=== PATIENT | male | born 1990 | race Caucasian/White ===

== ENCOUNTER 2024-10-20 23:34 | Observation (INO) ==
--- NOTE | 2024-10-21 02:42 | Emergency Department Note ---
History of Present Illness General Chief complaint: Abdominal Pain Stated complaint: POST SURGERY PAIN,NO BOWEL MOVEMENT Time Seen by Provider: 10/21/24 02:24 History of Present Illness Maximum Pain Intensity: 9 This 34-year-old male who had periumbilical hernia surgery today laparoscopically outpatient agrees with by Dr. Gil presents ER complaining of severe abdominal pain after trying to have a bowel movement. Patient denies fever, chills, vomiting, diarrhea. Home Medications Medication Instructions Recorded Confirmed Type peak flow meter (Peak Air Peak #1 ea 08/23/20 12/31/23 Rx Flow Meter) omeprazole 20 mg tablet,delayed 20 mg PO QPM 12/03/20 02/02/24 History release nebulizers #1 ea 08/11/21 12/31/23 Rx nebulizer accessories #1 ea 01/04/24 01/04/24 Rx albuterol sulfate 0.63 mg/3 mL 0.63 mg (3 mL) inhalation QID PRN 04/22/24 Rx solution for nebulization shortness of breath or wheezing #90 mL tiotropium bromide 1.25 2 puff inhalation DAILY #4 grams 04/22/24 Rx mcg/actuation mist for inhalation (Spiriva Respimat) nebulizer and compressor #1 ea 04/24/24 Rx mometasone-formoterol HFA 200 2 puff inhalation BID #3 Inhalers 06/16/24 Rx mcg-5 mcg/actuation aerosol inhaler montelukast 10 mg tablet See Rx Instructions .Route 06/21/24 Rx .COMPLEX #30 tabs albuterol sulfate 90 mcg/actuation 2 inh inhalation Q6H PRN Shortness 08/07/24 Rx aerosol inhaler Of Breath #18 grams benralizumab 30 mg/mL subcutaneous 30 mg subcut .COMPLEX #1 mL 09/11/24 Rx syringe (Fasenra) Allergies Allergy/AdvReac Type Severity Reaction Status Date / Time No Known Drug Allergies Allergy Unknown Verified 02/02/24 10:20 Past Med/Surg History Problem List (Updated 10/21/24 @ 05:38 by Tawnya Syed PA-C) Leukocytosis (Acute) S/P hernia surgery (Acute) Abdominal pain, acute (Acute) Umbilical hernia GERD (gastroesophageal reflux disease) History of lung abscess H/O aspiration pneumonitis Dyspnea 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 Asthma inhalers daily/prn, nebulizer prn Medical History GERD (gastroesophageal reflux disease) Anxiety History of anesthesia reaction History of ARDS History of abscessed tooth Diarrhea GERD (gastroesophageal reflux disease) Temporomandibular joint disorder Medical marijuana use Migraine History of pneumothorax Asthma History of sepsis Surgical History History of tooth extraction History of wisdom tooth extraction Family History Grandmother (Maternal) Family history of diabetes mellitus Other No family history of adverse response to anesthesia Social History (Updated 01/26/24 @ 16:48 by Chiquis Martinez RN) Smoking Status: Former smoker Tobacco Type: Cigarettes Age Started Using Tobacco: 23; Age Quit Using Tobacco: 30; packs per day: 2; Second Hand Exposure: No; Do You Dip or Chew Tobacco: No; Hx Alcohol Use: Yes Alcohol type: beer, wine and hard liquor Hx Substance Use: Yes (medical marijuana) Preferred Language: Citizen Of [place] Communication Ability: Effective Lamp Replacer Required: No Beliefs That Will Affect Care: None Current Living Situation: Family and Significant Other Current Living Situation Comment: Lives with fiance and 2 kids Feels Safe at Home: Yes Assistive Devices: Contacts and Glasses Review of Systems A total of 10 systems reviewed and were otherwise negative Physical Exam Vital Signs Vital Signs - 24 hr 10/20/24 23:46 10/21/24 02:00 10/21/24 02:51 Temperature 36.8 C Temperature Source Temporal Artery Scan Pulse Rate 95 H Pulse Rate [Finger] 88 Pulse Rhythm Regular Pulse Strength Normal Respiratory Rate 18 18 Respiratory Effort / Characteristics Non-Labored Spontaneous Respiratory Depth Normal Respiratory Pattern Regular Blood Pressure 123/88 Blood Pressure [Right Arm] 133/84 Blood Pressure Mean 99 Blood Pressure Mean [Right Arm] 100 Blood Pressure Position Sitting Pulse Oximetry 99 97 Oxygen Delivery Method Room Air Room Air Room Air Sepsis Recent Fever Within 48 Hours Yes Sepsis New/Unexplained Change in Mental Status No Sepsis Action Taken by Nursing No Action Required 10/21/24 04:00 Temperature Temperature Source Pulse Rate Pulse Rate [Finger] 87 Pulse Rhythm Pulse Strength Respiratory Rate 20 Respiratory Effort / Characteristics Respiratory Depth Respiratory Pattern Blood Pressure Blood Pressure [Right Arm] 138/90 Blood Pressure Mean Blood Pressure Mean [Right Arm] 106 Blood Pressure Position Pulse Oximetry 95 Oxygen Delivery Method Room Air Sepsis Recent Fever Within 48 Hours Sepsis New/Unexplained Change in Mental Status Sepsis Action Taken by Nursing VITALS: Vitals are noted on the nurse's note and reviewed by myself. Vital signs stable. GENERAL: Pleasant gentleman, in no acute distress, nondiaphoretic, well- developed well-nourished. SKIN: Capillary reflex less than 2 seconds. HEENT: Normocephalic. PERRLA. EOMI. Nares patent. Mucous membranes moist. Neck is supple without nuchal rigidity. HEART: Regular rate and rhythm LUNGS: Clear to auscultation bilaterally without wheezes, rales or rhonchi. No retractions or accessory muscle use. ABDOMEN: Positive bowel sounds x 4. Normal tympanic percussion. Soft, diffuse tenderness with incisional wounds intact, without masses or organomegaly. Maldonado sign negative. No guarding or rebound tenderness. no CVA tenderness MUSCULOSKELETAL: No gross musculoskeletal defects. NEURO: Patient was alert and oriented to person place and time. No focal neurological deficits. Course Administered Medications Morphine Sulfate (Morphine Sulfate 4 Mg/Ml 1 Ml Carp\Vial) 4 mg IV Q15M PRN PRN Reason: Pain Stop: 11/04/24 02:33 Last Admin: 10/21/24 04:31 Dose: 4 mg Documented By: Admin: 10/21/24 03:27 Dose: 4 mg Documented By: Admin: 10/21/24 02:48 Dose: 4 mg Documented By: SARAH Discontinued Medications Sodium Chloride (Nss) 1,000 mls @ 999 mls/hr IV .Q1H1M ONE Stop: 10/21/24 03:34 Last Infusion: 10/21/24 04:43 Dose: Infused Documented By: Admin: 10/21/24 02:48 Dose: 999 mls/hr Documented By: SARAH Ioversol (Optiray 320 100ml) 93 ml IV ONCE ONE Stop: 10/21/24 03:20 Last Admin: 10/21/24 03:19 Dose: 93 ml Documented By: CANDELARIA Ondansetron HCl (Ondansetron Inj 2 Mg/Ml 2 Ml Vial) 4 mg IV NOW STA Stop: 10/21/24 02:35 Last Admin: 10/21/24 02:48 Dose: 4 mg Documented By: SARAH Medical Decision Making Medical Records Attestation: I reviewed the patient's medical records. Home Medications Current Medication List: was personally reviewed by me Laboratory Data Attestation: I reviewed the patient's lab results. 10/21/24 02:34 10/21/24 02:34 Lab Results 10/21/24 10/21/24 10/21/24 Range/Units 02:34 03:00 04:16 WBC 24.40 H (4.8-10.8) K/ul RBC 4.77 (4.70-6.10) M/uL Hgb 13.8 L (14.0-18.0) g/dl POC Hgb 14.3 (14.0-18.0) g/dl Hct 39.4 L (42.0-52.0) % POC Hct 42 (42-52) % MCV 82.6 (80.0-100.0) fL MCH 28.9 (25.0-34.0) pg MCHC 35.0 (32.0-36.0) g/dL RDW Std Deviation 37.8 (36.4-46.3) fL RDW Coeff of Eduardo 12.5 (11.5-14.5) % Plt Count 292 (130-400) K/uL MPV 9.6 (9.4-12.4) fL Immature Gran % (Auto) 0.4 % Neut % (Auto) 85.2 % Lymph % (Auto) 5.2 % [place] % (Auto) 9.1 % Eos % (Auto) 0.0 % Baso % (Auto) 0.1 % Neut # (Auto) 20.79 H (1.40-6.50) K/uL Lymph # (Auto) 1.27 (1.20-3.40) K/uL [place] # (Auto) 2.21 H (0.11-0.59) K/uL Eos # (Auto) 0.00 (0.00-0.50) K/uL Baso # (Auto) 0.03 (0.00-0.20) K/uL Immature Gran # (Auto) 0.10 (0.01-0.20) K/uL RBC Morphology Unremarkable POC Sodium 136 (135-144) mmol/L Sodium 135 L (136-145) mmol/L POC Potassium 4.1 (3.3-5.0) mmol/L Potassium 4.1 (3.5-5.1) mmol/L POC Chloride 102 (101-112) mmol/L Chloride 102 (98-107) mmol/L Carbon Dioxide 27 (21-32) mmol/L POC Total CO2 23 L (24-31) mmol/L Anion Gap 6 (3-11) POC Anion Gap 16.0 (16-25) mmol/L POC BUN 11 (7-18) mg/dl BUN 12 (6-23) mg/dl Creatinine 0.77 (0.6-1.4) mg/dl POC Creatinine 0.8 (0.6-1.3) mg/dl Est Cr Clr Drug Dosing 148.6 ml/min eGFR 119.73 BUN/Creatinine Ratio 15.6 (10-20) Glucose 110 H (70-99(Fasting)) mg/dl POC Glucose (other) 109 H (70-99) mg/dl Calcium 9.4 (8.6-10.3) mg/dl POC Ioniz Calcium Isabella 1.18 (1.12-1.32) mmol/l Total Bilirubin 0.6 (0.2-1.0) mg/dl AST 21 (13-39) U/L ALT 21 (7-52) U/L Alkaline Phosphatase 70 (34-104) U/L Total Protein 7.0 (6.0-8.3) gm/dl Albumin 4.7 (3.4-5.0) gm/dl Globulin 2.3 L (2.5-4.0) gm/dl Albumin/Globulin Ratio 2.0 (0.9-2) Lipase 21 (11-82) U/L Urine Color Yellow Urine Appearance Clear (Clear) Urine pH 6.0 (4.5-7.5) Ur Specific [place] 1.040 H (1.000-1.030) Urine Protein Negative (Negative) Urine Glucose (UA) Negative (Negative) Urine Ketones Negative (Negative) Urine Blood Negative (Negative) Urine Nitrite Negative (Negative) Urine Bilirubin Negative (Negative) Urine Urobilinogen Negative (Negative) Ur Leukocyte Esterase Negative (Negative) Imaging Data Attestation: I personally reviewed and interpreted this imaging study as follows: Radiologist's Impression: KUB X-Ray 10/21/24 00:33 EXAM: XR KUB/Abdomen 1 view CLINICAL HISTORY: POSSIBLE IMPACTION POST SURG TODAY SDM TECHNIQUE: X-ray images of the abdomen were obtained in supine position. COMPARISON: No prior studies are available for comparison. FINDINGS: Gas Pattern: The gas pattern within the abdomen is normal with fecal matter loaded in the ascending and transverse colon. No evidence of bowel obstruction or distention. No signs of pneumoperitoneum Soft Tissues: Soft tissues of the abdomen appear normal without evidence of masses or calcifications. The liver, spleen, and kidneys are of normal size and position. Surgical clips of cholecystectomy are noted, IMPRESSION: Normal abdominal X-ray. No acute abnormalities were identified. Electronically signed by Dominga Rodrigues 10-21-2024 03:15 AM Abdomen/Pelvis CT 10/21/24 02:34 EXAM: CT abd pelvis IV con only CLINICAL HISTORY: Patient reports laproscopic hernia repair at 0900 this morning and reports attempting to have a BM but was unable to go. Reports spasming in lower abdominal muscles and fluctuating pain. 5/325 oxycodone/ acetaminophen @ 2100 pt unable to raise arms above head 93 ml opti 320 PW TECHNIQUE: Contiguous axial images were obtained from the level of the diaphragm to the pubic symphysis without and with intravenous contrast. Coronal and sagittal reconstructions were likewise performed and indicated to increase the sensitivity for detecting clinically relevant pathology. If IV contrast material had not been administered, the likelihood of detecting abnormalities relevant to the patient's condition would have been substantially decreased. CT scan was performed according to ALARA (as low as reasonable achievable). COMPARISON: None. FINDINGS: The visualized lung bases are clear. The liver is normal in size and attenuation. No focal liver lesions are seen. There is no intra or extrahepatic biliary ductal dilatation. Hepatic vasculature is patent. The gallbladder is present. The spleen, pancreas, and adrenal glands are unremarkable. The kidneys are normal in size and attenuation. There is no hydronephrosis or perinephric fat stranding. No renal calculi or renal masses are identified. The ureters are normal in caliber and no ureteral calculi are seen. The bladder is normal in contour. Pelvic viscera are unremarkable. No focal or diffuse bowel wall thickening or evidence of bowel obstruction is identified. Abdominal and pelvic vasculature is patent. No aggressive appearing osseous lesions are identified. Ill-defined fat stranding with multiple air foci are noted involving left side of anterior abdominal wall -possibility of recent operative changes likely. Few tiny air foci are also noted involving peritoneum- postoperative changes likely. Thin strip of fluid with few tiny air foci is noted involving retroperitoneum adjacent to the abdominal aorta and inferior vena cava, and along the left psoas muscle. Mild fluid noted in right paracolic gutter and right iliac fossa and in pelvic cavity. IMPRESSION: Ill-defined fat stranding with multiple air foci are noted involving left side of anterior abdominal wall -possibility of recent operative changes likely. Few tiny air foci are also noted, involving peritoneum- postoperative changes likely. Thin strip of fluid with few tiny air foci is noted involving retroperitoneum adjacent to the abdominal aorta and inferior vena cava, and along the left psoas muscle. Mild fluid noted in right paracolic gutter, right iliac fossa and in pelvic cavity. Electronically signed by Mohit Lozano 10-21-2024 05:24 AM MDM Narrative Prior records/ancillary studies reviewed. Triage Nursing notes reviewed. Additional history obtained from family. The patient's history was concerning for abdominal pain after her umbilical hernia surgery Differential diagnosis: Etiologies such as postsurgical complication, appendicitis, diverticulitis, PUD, biliary pathology, UTI, pancreatitis, obstruction, mesenteric ischemia, aortic pathology, infections, inflammatory bowel disease, renal colic, as well as others were entertained. Physical examination findings: As above. ER treatment provided: An order was placed for continuous cardiac monitoring. The monitor shows a rate of 60-100 with a sinus rhythm per my Independent interpretation. Zofran, morphine, IV fluids On reassessment the patient felt better. Diagnostics interpreted by me: The labs Independently Interpreted by myself revealed leukocytosis, stable H&H Imaging studies: Imaging was reviewed and read by radiology Consultation: A consultation was placed with the surgery, Dr. Rangel. The case was discussed and diagnostics were reviewed. The patient was evaluated admitted to their service. Exam and history seem consistent with postop intractable abdominal pain. Surgery thinks CAT scan is most likely all postsurgical. He will admit the patient for pain control. Patient is agreeable. No perforation on CAT scan. Patient was not vomiting. Stable vital signs. By the evaluation outlined above emergent etiologies such as appendicitis, diverticulitis, PUD, biliary pathology, UTI, pancreatitis, obstruction, mesenteric ischemia, aortic pathology, infections, inflammatory bowel disease, renal colic, as well as others were deemed relatively unlikely. The pt informed about the findings as listed above. All questions were answered and pleased with the treatment. The chart was completed utilizing [employer] Speech voice recognition software. Grammatical errors, random word insertions, pronoun errors, and incomplete sentences are an occassional consequence of this system due to software limitations, ambient noise, and hardware issues. Any formal questions or concerns about the content, text, or information contained within the body of this dictation should be directly addressed to the physician customer support assistant for clarification. Impression & Plan Abdominal pain, acute, S/P hernia surgery, Leukocytosis Discharge Plan Visit Data Chief Complaint: Abdominal Pain Stated Complaint: POST SURGERY PAIN,NO BOWEL MOVEMENT ED Provider: Leonarda Pressley ED Midlevel Provider: Tawnya Syed Discharge Problem: Abdominal pain, acute, S/P hernia surgery, Leukocytosis Patient Disposition: Being Evaluated by Surgeon Condition: Good Forms Stand Alone Forms: [facility] [employer] Prescriptions Prescriptions: No Action albuterol sulfate 0.63 mg/3 mL solution for nebulization 0.63 mg inhalation QID PRN (Reason: shortness of breath or wheezing) Qty: 90 1RF Spiriva Respimat 1.25 mcg/actuation mist 2 puff INH DAILY Qty: 4 5RF (DME) nebulizer and compressor Device See Rx Instructions .Route Qty: 1 0RF Rx Instructions: As directed mometasone-formoterol 200-5 mcg/actuation HFA aerosol inhaler 2 puff inhalation BID Qty: 3 3RF montelukast 10 mg tablet See Rx Instructions .ROUTE .COMPLEX Qty: 30 5RF Dose Instruction: TAKE 1 TABLET BY MOUTH EVERY MORNING Rx Instructions: TAKE 1 TABLET BY MOUTH EVERY MORNING albuterol sulfate 90 mcg/actuation HFA aerosol inhaler 2 inh inhalation Q6H PRN (Reason: Shortness Of Breath) Qty: 18 5RF Fasenra 30 mg/mL syringe 30 mg subcut .COMPLEX Qty: 1 6RF Rx Instructions: INJECT 30MG SQ EVERY 8 WEEKS APPROVED 03/16/24 - 03/17/25 REF# [id number] (DME) nebulizer accessories Kit See Rx Instructions .Route Qty: 1 0RF Rx Instructions: As directed (DME) Peak Air Peak Flow Meter Device See Rx Instructions .ROUTE .MEDSUPPLY Qty: 1 0RF Rx Instructions: As directed (DME) nebulizers Misc See Rx Instructions .Route Qty: 1 0RF Rx Instructions: As directed omeprazole 20 mg Tablet,Delayed Release (Dr/Ec) 20 mg PO QPM Referrals Referrals: Breonna Lyons, DO [Primary Care Provider] -
[2024-10-21] MEDS: ONDANSETRON INJ 2 MG/ML 2 ML VIAL IV STA (02:48)
[2024-10-21] MEDS: MoRPHine SULFATE 4 MG/ML 1 ML CARP\\VIAL IV PRN (02:48)
[2024-10-21] MEDS: SODIUM CHLORIDE 0.9% 1,000 ML IV ONE (02:48)
[2024-10-21 03:16] LABS: iSTAT Creatinine 0.8 mg/dl (0.6-1.3); iSTAT Hemoglobin 14.3 g/dl (14.0-18.0); iSTAT Ionized Calcium 1.18 mmol/l (1.12-1.32); iSTAT Potassium 4.1 mmol/L (3.3-5.0)
--- NOTE | 2024-10-21 03:16 | XRay Report ---
EXAM: XR KUB/Abdomen 1 view CLINICAL HISTORY: POSSIBLE IMPACTION POST SURG TODAY SDM TECHNIQUE: X-ray images of the abdomen were obtained in supine position. COMPARISON: No prior studies are available for comparison. FINDINGS: Gas Pattern: The gas pattern within the abdomen is normal with fecal matter loaded in the ascending and transverse colon. No evidence of bowel obstruction or distention. No signs of pneumoperitoneum Soft Tissues: Soft tissues of the abdomen appear normal without evidence of masses or calcifications. The liver, spleen, and kidneys are of normal size and position. Surgical clips of cholecystectomy are noted, IMPRESSION: Normal abdominal X-ray. No acute abnormalities were identified. Electronically signed by Dominga Rodrigues 10-21-2024 03:15 AM
[2024-10-21] MEDS: OPTIRAY 320 100ml IV ONE (03:19)
[2024-10-21 03:24] LABS: Hematocrit (blood only) 39.4 % (42.0-52.0); Hemoglobin 13.8 g/dl (14.0-18.0); Mean Corpuscular Hemoglobin 28.9 pg (25.0-34.0); Mean Corpuscular Volume 82.6 fL (80.0-100.0); Mean Platelet Volume 9.6 fL (9.4-12.4); Platelet Count 292 K/uL (130-400); RDW Coefficient of Variation 12.5 % (11.5-14.5); RDW Standard Deviation 37.8 fL (36.4-46.3); Red Blood Count 4.77 M/uL (4.70-6.10)
--- OUTSIDE RECORDS SUMMARY | 2024-10-21 03:24 | External Medical Summary | Summary of Care ---
Author Name Unknown Organization [facility] Address [address] [place] [address] Phone [phone] Care Team Providers Care Image Scientist Name Role Phone Breonna Lyons Primary Care Provider Reason for Visit * Reason Onset Date Comments Pre Op Discussion 10/03/2024 Encounter Details Date Type Department Care Team (Late st Contact Info) Description 10/03/2024 Telephone Pre [facility] [address] [facility] [place] [address] [facility] Gil [facility] [address] [facility] [place] [id number] Pre Op Discussion Allergies No known active allergiesdocumented as of this encounter (statuses as of 10/03/2024) Medications Mometasone Furo-Formoterol Fum (DULERA) 200-5 MCG/ACT Inhaler Inhale 2 Puffs by mouth in the morning and 2 Puffs before bedtime. Active montelukast (SINGULAIR) 10 MG Tablet Take 1 Tab by mouth daily. 30 Tab 11/11/19 19 Active Respiratory Therapy Supplies (NEBULIZER/TUBING/ MOUTHPIECE) KIT Use as needed 1 Kit 11/11/19 19 Active Spiriva HandiHaler 18 MCG Inhalation Capsule (tiotropium bromide) Inhale 1 Capsule by mouth in the morning. For inhaler only, do not swallow.. 10/31/19 21 Active Spiriva Respimat 1.25 MCG/ACT Inhalation Aerosol Solution Inhale 1 Puff by mouth in the morning and 1 Puff before bedtime. 07/18/20 21 Active NATURAL SUPPLEMENT Take by mouth daily. Medical marijuana - Active Ondansetron HCl 4 MG Oral Tablet (Zofran)Indication s:Nausea and vomiting, intractability of vomiting not specified, unspecified vomiting type TAKE 1 TABLET BY MOUTH EVERY 6 HOURS NEEDED FOR NAUSEA 30 Tablet 3 04/22/20 22 Active Omeprazole 20 MG Oral Capsule Delayed Release (PriLOSEC) TAKE 1 CAPSULE BY MOUTH EVERY DAY 90 Capsule 3 10/15/19 23 Active Albuterol Sulfate (2.5 MG/3ML) 0.083% Inhalation Nebulization Solution (Proventil) Inhale 1 Vial via nebulizer every 4 hours as needed for Shortness of Breath. 75 mL 11 01/14/20 24 Active Albuterol Sulfate HFA 108 (90 Base) MCG/ACT Inhalation Aerosol SolutionIndication s:Moderate persistent asthma with exacerbation INHALE 1 PUFF BY MOUTH EVERY 4 HOURS NEEDED FOR WHEEZING OR DYSPNEA 54 g 1 04/25/20 24 Active tiZANidine HCl 4 MG Oral Tablet (Zanaflex)Indicati ons:Acute left-sided thoracic back pain,Spasm of muscle Take 0.5 Tablets by mouth every 8 hours as needed for Muscle spasms. 30 Tablet 05/17/20 24 Active Additional Information Patient not taking.Reported on 09/06/2024 predniSONE 10 MG Oral Tablet (Deltasone)Indicat ions:Moderate persistent asthma with exacerbation Take 5 tabs for 2 days, 4 tabs for 2 days, 3 tabs for 2 days, 2 tabs for 2 days 1 tab for 2 days 30 Tablet 06/13/20 24 Active predniSONE 10 MG Oral Tablet (Deltasone)Indicat ions:Moderate persistent asthma with exacerbation Take 5 tabs for 2 days, 4 tabs for 2 days, 3 tabs for 2 days, 2 tabs for 2 days 1 tab for 2 days 30 Tablet 06/26/20 24 Active Benralizumab 30 MG/ML Subcutaneous Solution Prefilled Syringe (Fasenra) Inject 30 mg under the skin every 8 weeks 1 mL 6 09/25/2024 11:03 AM EST 12/09/20 24 Active documented as of this encounter (statuses as of 10/03/2024) Active Problems Problem Noted Date Diagnosed Date Incisional hernia, without obstruction or gangre ne 09/06/2024 Autistic disorder 11/11/2023 Hemoptysis 10/28/2023 Gastro-esophageal reflux disease without esophag itis 07/29/2021 Severe persistent asthma, uncomplicated 07/29/20 21 Medical marijuana use 10/31/2020 Schizoaffective disorder 01/19/2019 Schizoid personality disorder 01/19/2019 Bipolar disorder 01/19/2019 Asthma, moderate persistent 12/19/2018 documented as of this encounter (statuses as of 10/03/2024) Resolved Problems Problem Noted Date Diagnosed Date Resolved Date Other pulmonary embolism wit hout acute cor pulmonale 01/19/2019 01/19/2019 Moderate malnutrition 10/26/20182018 ARDS (adult respiratory distress syndrome) 10/19/2018 01/19/2019 Asthma, mild persistent 10/16/201812/02 Pneumothorax, right 10/16/2018 01/20/20 19 Aspiration pneumonia 10/16/2018 019 documented as of this encounter (statuses as of 10/03/2024) Immunizations Name Administration Dates Next Due PPD 04/11/2019 Pneumococcal Polysaccharide PPV23 (Pneumovax) ,11/11/2018() Seasonal Influenza, PF, 6 M & above, IM , (FluLaval or Fluzone) 08/13/2020,11/11/2018 Seasonal Influenza, Recombin ant, RIV4, PF, (Flublock) 08/11/2021 TD - Tetanus/Diptheria (ADULT) 11/21/2011 documented as of this encounter Social History Tobacco Use Types Packs/Day Years Used Date Smoking Tobacco: Former Smokeless Tobacco: Never Alcohol Use Standard Drinks/Week Comments Yes 1 (1 standard drink = 0.6 oz pur e alcohol) PHQ-2 Answer Date Recorded PHQ-2 Score 2 08/07/2019 Hunger Vital Sign Answer Date Recorded Within the past 12 months, y ou worried that your food would run out before you got the money to buy more. Never true 02/22/20 24 Within the past 12 months, t he food you bought just didn't last and you didn't have money to get more. Never true 02/22/2024 Childcare Answer Date Recorded Do you feel overwhelmed with taking care of a child, family member or friend? No 02/22/2024 Does your family need help f inding childcare? (Household - for ages 0-17 years) Not on file 02/22/2024 Clothing Answer Date Recorded Have you been unable to get clothing when it was really needed? No 02/22/2024 Is your family able to get c lothes or diapers when needed? (Household - for ages 0-17 years) Not on file 02/22/2024 Personal Safety Answer Date Recorded Do you feel unsafe or have concerns for your saf ety? No 02/22/2024 Do you have concerns for you r family's safety? (Household - for ages 0-17 years) Not on file 02/22/2024 Utilities Answer Date Recorded Do you have trouble paying y our heating, water, or electric bill? No 02/22/2024 Is your family able to pay t he heat, water, or electric bill? (Household - for ages 0-17 years) Not on file 02/22/2024 Does your family have access to good internet? (Household - for ages 0-17 years) Not on file 02/22/2024 Employment Status Answer Date Recorded Are you unemployed or without regular income? No 02/22/2024 Does the household have a re lar source of income? (Household - for ages 0-17 years) Not on file 02/22/2024 Social Connections Answer Date Recorded How often do you feel lonely or isolated from th ose around you? Often 02/22/2024 Financial Resource Strain Answer Date R ecorded Do you have any trouble payi ng for your medications, or do you think you might in the future? No 02/22/2024 Does your family have troubl e paying for medicine? (Household - for ages 0-17 years) Not on file 02/22/2024 Transportation Needs Answer Date Record ed READ ONLY Do you have troubl e getting a ride to medical visits or work? Never True 02/22/2024 Does your family have a hard time getting a ride to doctors visits? (Household - for ages 0-17 years) Not on file 02/22/2024 Has lack of transportation k ept you from medical appointments, meetings, work, or from getting things needed for daily living? Check all that apply. (Adult - for ages 18 years and over) Not on file 02/22/2024 Do you (or your family) have trouble finding or paying for a ride (transportation)? (Household - for ages 0-17 years) Not on file 02/22/2024 Housing Stability Answer Date Recorded Do you currently live in a s helter or have no steady place to sleep at night? No 02/22/2024 READ ONLY Do you think you a re at risk of becoming homeless? No 02/22/2024 Does your family worry about paying for your home or becoming homeless? (Household - for ages 0-17 years) Not on file 0 02/22/2024 Are you homeless or worried that you might be in the future? (Adult - for ages 18 years and over) Not on file Are you (or your family) tonya eless or worried that you might be in the future? (Household - for ages 0-17 years) Not on file Food Insecurity Answer Date Recorded Do you need food for this week? No 02/22/2024 Are you able to get enough f ood for your family? (Household - for ages 0-17 years) Not on file 02/22/2024 Does your family need food t his week? (Household - for ages 0-17 years) Not on file 02/22/2024 Do you always have enough fo od for your family? (Household - for ages 0-17 years) Not on file 02/22/2024 Sex and Gender Information Value Date Recorded Sex Assigned at Male 02/22/2024 2:57 PM EDT Legal Sex Male 4:30 PM EDT Gender Identity Not on file Sexual Orientation Straight 02/22/2024 2: 57 PM EDT documented as of this encounter Functional Status * Are you deaf or do you have serious difficulty hearing? Answer Date of Assessment Author No 10/16/2018 9:57 AM Angelo Coleman, RN * Are you blind or do you have serious difficulty seeing, even when wearing glasses? Answer Date of Assessment Author Yes 10/16/2018 9:57 AM Angelo Coleman RN * Do you have serious difficulty walking or climbing stairs? (5 years old or older) Answer Date of Assessment Author No 10/16/2018 9:57 AM Angelo Coleman RN * Do you have difficulty dressing or bathing? (5 years old or older) Answer Date of Assessment Author No 10/16/2018 9:57 AM Angelo Coleman RN * Because of a physical, mental, or emotional condition, do you have difficulty doing errands alone such as visiting a doctors office or shopping? (15 years old or older) Answer Date of Assessment Author No 10/16/2018 9:57 AM Angelo Coleman RN documented as of this encounter Mental Status * Because of a physical, mental, or emotional condition, do you have serious difficulty concentrating, remembering, or making decisions? (5 years old or older) Answer Entry Date Author No 10/16/2018 9:57 AM Angelo Coelman RN documented in this encounter Miscellaneous Notes * Telephone Encounter - Aubree Fernandez OSA - 10/03/2024 9:55 AM EST Lm on significant other's voicemail to return our call. * Telephone Encounter - Dori Saleh RN - 10/03/2024 7:20 AM EST Patient is scheduled for Laparoscopic recurrent Paraumbilical Hernia Repair with mesh on 10/06/2024 Multiple unsuccessful attempts to contact the patient. PAT evaluation could not be completed Thank Dori cristina documented in this encounter Plan of Treatment Upcoming Encounters Date Type Department Care Team (Late st Contact Info) Description 10/09/2024 9:00 AM EST Scheduled Telephone General Surgery, [facility] [address] [facility] [place] [address] Nurse Juan [facility] Surg u[facility]ki Mccabeil [place] [id number] 10/19/2024 1:00 PM EST Office Visit General Surgery, [facility] [address] [place] [address] Marvin Gil MD [address] [place] [address] 12/04/2024 8:00 AM EST Telemedicine Psychiatry, [place] [address] [place] [address] Taty Kaplan MD [address] [place] [address] Health Maintenance Due Date Last Done Comments Hepatitis B Vaccine (1 of 3 - 19+ 3-dose series) 2008 DTap/Tdap Vaccines (1 - Tdap) 11/22/2011 11/21/2011 Pneumococcal Vaccine: Pediatrics (0 to 5 Years) and At-Risk Patients (6 to 18 Years and 19+ Years) (2 of 2 - PCV) 10/31/2021 10/31/2020 Diabetes Screening 10/31/2023 10/31/2020, 0 05/24/2019, 11/11/2018, Additional history exists COVID-19 Vaccine ( season) 2024 01/30/2021, 01/09/2021 Influenza Vaccine (FLU shot) (#1) 2024 08/11/2021, 08/13/2020, 11/11/2018 Hepatitis C Screening Completed 10/26/2018 HPV (Gardasil) Vaccine Aged Out No lo nger eligible based on patient's age to complete this topic MENINGOCOCCAL (MENACTRA/MENVEO) Aged Out No longer eligible based on patient's age to complete this topic documented as of this encounter Medical Devices Not on filedocumented as of this encounter Advance Directives * Full Code (Latest Code Status on File) Date Activated Date Inactivated Comments 06/26/2022 12:33 PM 06/26/2022 7:05 PM This order reflects the patients wishes and were consensually agreed upon. Question Answer Comments Discussion of Advance Directives occurred with: Patient * Full Code Date Activated Date Inactivated Comments 06/26/2022 12:27 PM 06/26/2022 12:33 PM This order reflects the patients wishes and were consensually agreed upon. Question Answer Comments Discussion of Advance Directives occurred with: Patient * Full Code Date Activated Date Inactivated Comments 02/18/2021 10:58 AM 02/18/2021 6:52 PM This order reflects the patients wishes and were consensually agreed upon. * Full Code Date Activated Date Inactivated Comments 10/16/2018 11:31 AM 11/11/2018 6:37 PM This order r eflects the patients wishes and were consensually agreed upon. Question Answer Comments Discussion of Advance Directives occurred with: Patient Does the patient have a Living Will? No Does the patient have Health Care Power of Attor juan? No Care Teams Image Scientist Relationship Specialty Start Date End Date Breonna Lyons DO [address] [place], [place] [address] PCP - General Family Medicine 12/19/18 documented as of this encounter
--- OUTSIDE RECORDS SUMMARY | 2024-10-21 03:24 | External Medical Summary | Summary of Care ---
Author Name Unknown Organization [facility] Address [address] [place] [address] Phone [phone] Care Team Providers Care Salt Lifter Name Role Phone Jatinderjerald Breonna Bowling DO Primary Care Provider Reason for Visit * Reason Comments Follow Up Hernia repair in and is having some problems , tenderness after a days work, when works out can "feel and play with it" Encounter Details Date Type Department Care Team (Late st Contact Info) Description 09/06/2024 8:30 AM EST Office Visit General Surgery, [facility] [address] [facility] [place] [id number] Marvin Gil MD [address] [facility] [address] Incisional hernia, without obstruction or gangrene* Allergies No known active allergiesdocumented as of this encounter (statuses as of 10/20/2024) Medications Mometasone Furo-Formoterol Fum (DULERA) 200-5 MCG/ACT Inhaler Inhale 2 Puffs by mouth in the morning and 2 Puffs before bedtime. Suspended montelukast (SINGULAIR) 10 MG Tablet Take 1 Tab by mouth daily. 30 Tab 11/11/19 19 Suspended Respiratory Therapy Supplies (NEBULIZER/TUBING /MOUTHPIECE) KIT Use as needed 1 Kit 11/11/19 19 Suspended Spiriva HandiHaler 18 MCG Inhalation Capsule (tiotropium bromide) Inhale 1 Capsule by mouth in the morning. For inhaler only, do not swallow.. 10/31/19 21 Suspended Spiriva Respimat 1.25 MCG/ACT Inhalation Aerosol Solution Inhale 1 Puff by mouth in the morning and 1 Puff before bedtime. 07/18/20 21 Suspended NATURAL SUPPLEMENT Take by mouth daily. Medical marijuana - Suspended Ondansetron HCl 4 MG Oral Tablet (Zofran)Indicatio ns:Nausea and vomiting, intractability of vomiting not specified, unspecified vomiting type TAKE 1 TABLET BY MOUTH EVERY 6 HOURS NEEDED FOR NAUSEA 30 Tablet 3 04/22/20 22 Suspended Omeprazole 20 MG Oral Capsule Delayed Release (PriLOSEC) TAKE 1 CAPSULE BY MOUTH EVERY DAY 90 Capsule 3 10/15/19 23 Suspended Fasenra 30 MG/ML Subcutaneous Solution Prefilled Syringe (Benralizumab) INJECT 30MG UNDER THE SKIN EVERY 8 WEEKS 1 mL 11 4 12:09 PM EDT 08/23/20 23 024 Discontinue d(Refill) Albuterol Sulfate (2.5 MG/3ML) 0.083% Inhalation Nebulization Solution (Proventil) Inhale 1 Vial via nebulizer every 4 hours as needed for Shortness of Breath. 75 mL 11 01/14/20 24 Suspended Albuterol Sulfate HFA 108 (90 Base) MCG/ACT Inhalation Aerosol SolutionIndicatio ns:Moderate persistent asthma with exacerbation INHALE 1 PUFF BY MOUTH EVERY 4 HOURS NEEDED FOR WHEEZING OR DYSPNEA 54 g 1 04/25/20 24 Suspended tiZANidine HCl 4 MG Oral Tablet (Zanaflex)Indicat ions:Acute left-sided thoracic back pain,Spasm of muscle Take 0.5 Tablets by mouth every 8 hours as needed for Muscle spasms. 30 Tablet 05/17/20 24 Suspended Additional Information Patient not taking.Reported on 09/06/2024 predniSONE 10 MG Oral Tablet (Deltasone)Indica tions:Moderate persistent asthma with exacerbation Take 5 tabs for 2 days, 4 tabs for 2 days, 3 tabs for 2 days, 2 tabs for 2 days 1 tab for 2 days 30 Tablet 06/13/20 24 Suspended Additional Information Patient not taking.Reported on 10/20/2024 predniSONE 10 MG Oral Tablet (Deltasone)Indica tions:Moderate persistent asthma with exacerbation Take 5 tabs for 2 days, 4 tabs for 2 days, 3 tabs for 2 days, 2 tabs for 2 days 1 tab for 2 days 30 Tablet 06/26/20 24 Suspended Additional Information Patient not taking.Reported on 10/20/2024 documented as of this encounter (statuses as of 10/20/2024) Active Problems Problem Noted Date Diagnosed Date Incisional hernia, without obstruction or gangre ne 09/06/2024 Autistic disorder 11/11/2023 Hemoptysis 10/28/2023 Gastro-esophageal reflux disease without esophag itis 07/29/2021 Severe persistent asthma, uncomplicated 07/29/20 21 Medical marijuana use 10/31/2020 Schizoaffective disorder 01/19/2019 Schizoid personality disorder 01/19/2019 Bipolar disorder 01/19/2019 Asthma, moderate persistent 12/19/2018 documented as of this encounter (statuses as of 10/20/2024) Resolved Problems Problem Noted Date Diagnosed Date Resolved Date Other pulmonary embolism wit hout acute cor pulmonale 01/19/2019 01/19/2019 Moderate malnutrition 10/26/20182018 ARDS (adult respiratory distress syndrome) 10/19/2018 01/19/2019 Asthma, mild persistent 10/16/201812/02 Pneumothorax, right 10/16/2018 01/20/20 19 Aspiration pneumonia 10/16/2018 019 documented as of this encounter (statuses as of 10/20/2024) Immunizations Name Administration Dates Next Due PPD [...] 02/22/2024 Does the household have a re gular source of income? (Household - for ages [...] PM EDT documented as of this encounter Last Filed Vital Signs Vital Sign Reading Time Taken Comments Blood Pressure - - Pulse - - Temperature 36.9 C (98.4 F) 09/06/2024 8:44 AM ES T Respiratory Rate - - Oxygen Saturation - - Inhaled Oxygen Concentration - - Weight 88.5 kg (195 lb) 09/06/2024 8:44 AM EST Height - - Body Mass Index 28.8 10/28/2023 1:23 PM EST documented in this encounter Functional Status * Are you deaf or do you have serious difficulty hearing? Answer Date of Assessment Author No 10/16/2018 9:57 AM Angelo Coleman RN * Are you blind or do [...] Date Author No 10/16/2018 9:57 AM Angelo Coleman RN documented in this encounter Progress Notes * Marvin Gil MD - 09/06/2024 8:55 AM EST [facility] [address] [place] [address] [facility] HPI.: Kamran Neely is a 34 year old male seen in consultation for Chief Complaint Patient presents with Follow Up Hernia repair in 2021 and is having some problems , tenderness after a days work, when works out can "feel and play with it" . They have had symptoms present for weeks duration. The symptoms did not started at work. Their painis sharp and intermittent and is usually associated with lifting. The lump is reducible. The patient has no symptoms of chronic constipation,chronic cough,difficulty urinating. The hernia is associated with a previous scar from a umbilical hernia repair without mesh. Past Medical History No past medical history on file. Past Surgical History Past Surgical History: Procedure Laterality Date COLONOSCOPY, DIAGNOSTIC (RECTUM) 12/06/2020 normal bx / [facility] CV ECHO, MIGUEL INTRAOPERATIVE 10/18/2018 ECHOCARDIOGRAPHY, TRANSESOPHAGEAL; INCLUDING PROBE PLACEMENT, IMAGE ACQUISITION, INTERPRETATION ANDREPORT performed by Noel Meneses MD at [facility] EGD, FLEXIBLE, DIAGNOSTIC 12/06/2020 normal bx / [facility] LAPAROSCOPY; CHOLECYSTECTOMY N/A 02/18/2021 LAPAROSCOPIC CHOLECYSTECTOMY performed by Marvin Gil MD at [facility] REPAIR INITIAL INCISIONAL OR VENTRAL HERNIA; REDUCIBLE 06/26/2022 REPAIR INITIAL INCISIONAL /VENTRAL HERNIA REDUCIBLE performed by Marvin Gil MD at [facility] Medications: Current Outpatient Medications Medication Sig Dispense Refill Mometasone Furo-Formoterol Fum (DULERA) 200-5 MCG/ACT Inhaler Inhale 2 Puffs by mouth in the morning and 2 Puffs before bedtime. montelukast (SINGULAIR) 10 MG Tablet Take 1 Tab by mouth daily. 30 Tab 0 Respiratory Therapy Supplies (NEBULIZER/TUBING/MOUTHPIECE) KIT Use as needed 1 Kit 0 Spiriva HandiHaler 18 MCG Inhalation Capsule (tiotropium bromide) Inhale 1 Capsule by mouth in the morning. For inhaler only, do not swallow.. Spiriva Respimat 1.25 MCG/ACT Inhalation Aerosol Solution Inhale 1 Puff by mouth in the morning and1 Puff before bedtime. NATURAL SUPPLEMENT Take by mouth daily. Medical marijuana - Ondansetron HCl 4 MG Oral Tablet (Zofran) TAKE 1 TABLET BY MOUTH EVERY 6 HOURS NEEDED FOR [id number] Tablet 3 Omeprazole 20 MG Oral Capsule Delayed Release (PriLOSEC) TAKE 1 CAPSULE BY MOUTH EVERY DAY 90 Capsule 3 Fasenra 30 MG/ML Subcutaneous Solution Prefilled Syringe (Benralizumab) INJECT 30MG UNDER THE SKIN EVERY 8 WEEKS 1 mL 11 Albuterol Sulfate (2.5 MG/3ML) 0.083% Inhalation Nebulization Solution (Proventil) Inhale 1 Vial via nebulizer every 4 hours as needed for Shortness of Breath. 75 mL 11 Albuterol Sulfate HFA 108 (90 Base) MCG/ACT Inhalation Aerosol Solution INHALE 1 PUFF BY MOUTH EVERY 4 HOURS NEEDED FOR WHEEZING OR DYSPNEA 54 g 1 predniSONE 10 MG Oral Tablet (Deltasone) Take 5 tabs for 2 days, 4 tabs for 2 days, 3 tabs for 2 days, 2 tabs for 2 days 1 tab for 2 days 30 Tablet 0 predniSONE 10 MG Oral Tablet (Deltasone) Take 5 tabs for 2 days, 4 tabs for 2 days, 3 tabs for 2 days, 2 tabs for 2 days 1 tab for 2 days 30 Tablet 0 tiZANidine HCl 4 MG Oral Tablet (Zanaflex) Take 0.5 Tablets by mouth every 8 hours as needed for Muscle spasms. (Patient not taking: Reported on 09/06/2024) 30 Tablet 0 No current facility-administered medications for this visit. Allergies: Allergies as of 09/06/2024 (No Known Allergies) Family History No family history on file. Social History Social History Socioeconomic History Marital status: Single Spouse name: Not on file Number of children: Not on file Years of education: Not on file Highest education level: Not on file Occupational History Not on file Tobacco Use Smoking status: Former Smokeless tobacco: Never Vaping Use Vaping status: Never Used Substance and Sexual Activity Alcohol use: Yes Alcohol/week: 1.0 standard drink of alcohol Types: 1 12 oz of beer per week Drug use: Yes Types: Marijuana Comment: Medical Sexual activity: Not on file Other Topics Concern Not on file Social History Narrative Not on file Social Needs Financial Resource Strain: Low Risk (02/22/2024) Financial Resource Strain Do you have any trouble paying for your medications, or do you think you might in the future? (Adult - for ages 18 years and over): No Does your family have trouble paying for medicine? (Household - for ages 0-17 years): Not on file Food Insecurity: No Food Insecurity (02/22/2024) Food Insecurity Do you need food for this week? (Adult - for ages 18 years and over): No Are you able to get enough food for your family? (Household - for ages 0-17 years): Not on file Does your family need food this week? (Household - for ages 0-17 years): Not on file Do you always have enough food for your family? (Household - for ages 0-17 years): Not on file Transportation Needs: No Transportation Needs (02/22/2024) Transportation Needs Do you have trouble getting a ride to medical visits or work? (Adult - for ages 18 years and over):Never True Does your family have a hard time getting a ride to doctors visits? (Household - for ages 0-17 years): Not on file Has lack of transportation kept you from medical appointments, meetings, work, or from getting things needed for daily living? Check all that apply. (Adult - for ages 18 years and over): Not on file Do you (or your family) have trouble finding or paying for a ride (transportation)? (Household - for ages 0-17 years): Not on file Social Connections: Socially Isolated (02/22/2024) Social Connections How often do you feel lonely or isolated from those around you? (Adult - for ages 18 years and over): Often Housing Stability: Low Risk (02/22/2024) Housing Stability Do you currently live in a residential or have no steady place to sleep at night? (Adult - for ages 18 years and over): No Do you think you are at risk of becoming homeless? (Adult - for ages 18 years and over): No Does your family worry about paying for your home or becoming homeless? (Household - for ages 0-17 years): Not on file Are you homeless or worried that you might be in the future? (Adult - for ages 18 years and over): Not on file Are you (or your family) homeless or worried that you might be in the future? (Household - for ages0-17 years): Not on file ROS: GEN: no weight loss, fever, fatigue HEENT: no changes in vision or hearing, no sinus problems, no sore throat, no hoarseness RESPIRATORY: no cough, wheezing, SOB or change in breathing CARDIOVASCULAR: no exertional chest pain, dyspnea, palpitations GI: no melena or hemetemesis, no change in bowel habits, no nausea or vomiting : no dysuria, hematuria, frequency MUSCULOSKELETAL: no change in joint pains, no new arthritis PSYCHIATRIC: no significant anxiety or depression, unchanged sleep pattern HEME: no bleeding tendency, no clotting tendency NEURO: no significant headache, no seizures , no tremors SKIN: no new rashes, no itching Physical Exam: Temperature 36.9 C (98.4 F), weight 88.5 kg (195 lb). Constitutional: alert,healthy,well nourished Head: normocephalic,atraumatic Eyes: sclera white Ears: pinna normal shape and color Neck: supple Lungs: clear to auscultation,breath sounds are equal and symmetric,no crepitus Heart: regular rate & rhythm,no murmur, gallops or rubs Abdomen: soft ,positive bowel sounds,non-tender; positive ventral/incisional hernia recurrent paraumbilical, reducible Extremities: no joint deformities, effusion, or inflammation,no edema,no skin discoloration Neuro: alert,gait normal,motor normal Skin: no obvious rashes or significant lesions,warm and dry with good turgor IMP: Kamran Neely is a 34 year old male with a ventral/incisional hernia which is currently symptomatic. For this reason, I have recommended that the patient consider a hernia repair. This could be performed in open or laparascopic approach. Laparascopic surgery is useful in with incisional hernias and complex ventral hernias with fewer wound/mesh problems and early return to normal activity. I discussed the surgery in detail and the complications related to the surgery and the anesthesia. The risks of inherent to laparascopic surgery including seroma formation and the possibility of injuring the bowel or blood vessels were also discussed. Overall risks include, but are not limited to: recurrence of the hernia, post-op and chronic pain, numbness, bleeding, wound problems and mesh infection requiring mesh removal. Patient understands these risks. Expected same day nature of surgery and postoperative recovery period reviewed. Activity restrictions postoperatively to include no heavy lifting or high impact activity for three to six weeks reviewed. All questions were answered to the patient's satisfaction and consent was signed. Conservative treatment with avoidance of heavy lifting or straining until after surgical repair was discussed. We also reviewed the signs and symptoms of incarceration/strangulationand the patient was instructed to go directly to the emergency room should this occur. PLAN: Lap ventral/incisional hernia repair with mesh at [facility] on 10/05/2024. Marvin Gil MD 09/06/2024 8:55 AM documented in this encounter H&P Notes * Marvin Gil MD - 09/06/2024 8:57 AM EST [facility] [address] [place] [address] [facility] HPI.: Kamran Neely is a 34 year old male seen in consultation for Chief Complaint Patient presents with Follow Up Hernia repair in 2021 and is having some problems , tenderness after a days work, when works out can "feel and play with it" . They have had symptoms present for weeks duration. The symptoms did not started at work. Their painis sharp and intermittent and is usually associated with lifting. The lump is reducible. The patient has no symptoms of chronic constipation,chronic cough,difficulty urinating. The hernia is associated with a previous scar from a umbilical hernia repair without mesh. Past Medical History No past medical history on file. Past Surgical History Past Surgical History: Procedure Laterality Date COLONOSCOPY, DIAGNOSTIC (RECTUM) 12/06/2020 normal bx / [facility] CV ECHO, MIGUEL INTRAOPERATIVE 10/18/2018 ECHOCARDIOGRAPHY, TRANSESOPHAGEAL; INCLUDING PROBE PLACEMENT, IMAGE ACQUISITION, INTERPRETATION ANDREPORT performed by Noel Meneses MD at [facility] EGD, FLEXIBLE, DIAGNOSTIC 12/06/2020 normal / [facility] LAPAROSCOPY; CHOLECYSTECTOMY N/A 02/18/2021 LAPAROSCOPIC CHOLECYSTECTOMY performed by Marvin Gil MD at OR [facility] REPAIR INITIAL INCISIONAL OR VENTRAL HERNIA; REDUCIBLE 06/26/2022 REPAIR INITIAL INCISIONAL /VENTRAL HERNIA REDUCIBLE performed by Marvin Gil MD at OR [facility] Medications: Current Outpatient Medications Medication Sig Dispense Refill Mometasone Furo-Formoterol Fum (DULERA) 200-5 MCG/ACT Inhaler Inhale 2 Puffs by mouth in the morning and 2 Puffs before bedtime. montelukast (SINGULAIR) 10 MG Tablet Take 1 Tab by mouth daily. 30 Tab 0 Respiratory Therapy Supplies (NEBULIZER/TUBING/MOUTHPIECE) KIT Use as needed 1 Kit 0 Spiriva HandiHaler 18 MCG Inhalation Capsule (tiotropium bromide) Inhale 1 Capsule by mouth in the morning. For inhaler only, do not swallow.. Spiriva Respimat 1.25 MCG/ACT Inhalation Aerosol Solution Inhale 1 Puff by mouth in the morning and1 Puff before bedtime. NATURAL SUPPLEMENT Take by mouth daily. Medical marijuana - Ondansetron HCl 4 MG Oral Tablet (Zofran) TAKE 1 TABLET BY MOUTH EVERY 6 HOURS NEEDED FOR [id number] Tablet 3 Omeprazole 20 MG Oral Capsule Delayed Release (PriLOSEC) TAKE 1 CAPSULE BY MOUTH EVERY DAY 90 Capsule 3 Fasenra 30 MG/ML Subcutaneous Solution Prefilled Syringe (Benralizumab) INJECT 30MG UNDER THE SKIN EVERY 8 WEEKS 1 mL 11 Albuterol Sulfate (2.5 MG/3ML) 0.083% Inhalation Nebulization Solution (Proventil) Inhale 1 Vial via nebulizer every 4 hours as needed for Shortness of Breath. 75 mL 11 Albuterol Sulfate HFA 108 (90 Base) MCG/ACT Inhalation Aerosol Solution INHALE 1 PUFF BY MOUTH EVERY 4 HOURS NEEDED FOR WHEEZING OR DYSPNEA 54 g 1 predniSONE 10 MG Oral Tablet (Deltasone) Take 5 tabs for 2 days, 4 tabs for 2 days, 3 tabs for 2 days, 2 tabs for 2 days 1 tab for 2 days 30 Tablet 0 predniSONE 10 MG Oral Tablet (Deltasone) Take 5 tabs for 2 days, 4 tabs for 2 days, 3 tabs for 2 days, 2 tabs for 2 days 1 tab for 2 days 30 Tablet 0 tiZANidine HCl 4 MG Oral Tablet (Zanaflex) Take 0.5 Tablets by mouth every 8 hours as needed for Muscle spasms. (Patient not taking: Reported on 09/06/2024) 30 Tablet 0 No current facility-administered medications for this visit. Allergies: Allergies as of 09/06/2024 (No Known Allergies) Family History No family history on file. Social History Social History Socioeconomic History Marital status: Single Spouse name: Not on file Number of children: Not on file Years of education: Not on file Highest education level: Not on file Occupational History Not on file Tobacco Use Smoking status: Former Smokeless tobacco: Never Vaping Use Vaping status: Never Used Substance and Sexual Activity Alcohol use: Yes Alcohol/week: 1.0 standard drink of alcohol Types: 1 12 oz of beer per week Drug use: Yes Types: Marijuana Comment: Medical Sexual activity: Not on file Other Topics Concern Not on file Social History Narrative Not on file Social Needs Financial Resource Strain: Low Risk (02/22/2024) Financial Resource Strain Do you have any trouble paying for your medications, or do you think you might in the future? (Adult - for ages 18 years and over): No Does your family have trouble paying for medicine? (Household - for ages 0-17 years): Not on file Food Insecurity: No Food Insecurity (02/22/2024) Food Insecurity Do you need food for this week? (Adult - for ages 18 years and over): No Are you able to get enough food for your family? (Household - for ages 0-17 years): Not on file Does your family need food this week? (Household - for ages 0-17 years): Not on file Do you always have enough food for your family? (Household - for ages 0-17 years): Not on file Transportation Needs: No Transportation Needs (02/22/2024) Transportation Needs Do you have trouble getting a ride to medical visits or work? (Adult - for ages 18 years and over):Never True Does your family have a hard time getting a ride to doctors visits? (Household - for ages 0-17 years): Not on file Has lack of transportation kept you from medical appointments, meetings, work, or from getting things needed for daily living? Check all that apply. (Adult - for ages 18 years and over): Not on file Do you (or your family) have trouble finding or paying for a ride (transportation)? (Household - for ages 0-17 years): Not on file Social Connections: Socially Isolated (02/22/2024) Social Connections How often do you feel lonely or isolated from those around you? (Adult - for ages 18 years and over): Often Housing Stability: Low Risk (02/22/2024) Housing Stability Do you currently live in a residential or have no steady place to sleep at night? (Adult - for ages 18 years and over): No Do you think you are at risk of becoming homeless? (Adult - for ages 18 years and over): No Does your family worry about paying for your home or becoming homeless? (Household - for ages 0-17 years): Not on file Are you homeless or worried that you might be in the future? (Adult - for ages 18 years and over): Not on file Are you (or your family) homeless or worried that you might be in the future? (Household - for ages0-17 years): Not on file ROS: GEN: no weight loss, fever, fatigue HEENT: no changes in vision or hearing, no sinus problems, no sore throat, no hoarseness RESPIRATORY: no cough, wheezing, SOB or change in breathing CARDIOVASCULAR: no exertional chest pain, dyspnea, palpitations GI: no melena or hemetemesis, no change in bowel habits, no nausea or vomiting : no dysuria, hematuria, frequency MUSCULOSKELETAL: no change in joint pains, no new arthritis PSYCHIATRIC: no significant anxiety or depression, unchanged sleep pattern HEME: no bleeding tendency, no clotting tendency NEURO: no significant headache, no seizures , no tremors SKIN: no new rashes, no itching Physical Exam: Temperature 36.9 C (98.4 F), weight 88.5 kg (195 lb). Constitutional: alert,healthy,well nourished Head: normocephalic,atraumatic Eyes: sclera white Ears: pinna normal shape and color Neck: supple Lungs: clear to auscultation,breath sounds are equal and symmetric,no crepitus Heart: regular rate & rhythm,no murmur, gallops or rubs Abdomen: soft ,positive bowel sounds,non-tender; positive ventral/incisional hernia recurrent paraumbilical, reducible Extremities: no joint deformities, effusion, or inflammation,no edema,no skin discoloration Neuro: alert,gait normal,motor normal Skin: no obvious rashes or significant lesions,warm and dry with good turgor IMP: Kamran Neely is a 34 year old male with a ventral/incisional hernia which is currently symptomatic. For this reason, I have recommended that the patient consider a hernia repair. This could be performed in open or laparascopic approach. Laparascopic surgery is useful in with incisional hernias and complex ventral hernias with fewer wound/mesh problems and early return to normal activity. I discussed the surgery in detail and the complications related to the surgery and the anesthesia. The risks of inherent to laparascopic surgery including seroma formation and the possibility of injuring the bowel or blood vessels were also discussed. Overall risks include, but are not limited to: recurrence of the hernia, post-op and chronic pain, numbness, bleeding, wound problems and mesh infection requiring mesh removal. Patient understands these risks. Expected same day nature of surgery and postoperative recovery period reviewed. Activity restrictions postoperatively to include no heavy lifting or high impact activity for three to six weeks reviewed. All questions were answered to the patient's satisfaction and consent was signed. Conservative treatment with avoidance of heavy lifting or straining until after surgical repair was discussed. We also reviewed the signs and symptoms of incarceration/strangulationand the patient was instructed to go directly to the emergency room should this occur. PLAN: Lap ventral/incisional hernia repair with mesh at [facility] on 10/05/2024. Marvin Gil MD 09/06/2024 8:55 AM documented in this encounter Nursing Notes * Temitope Alcazar LPN - 09/06/2024 9:33 AM EST [facility] Umbilical Hernia Pre-Op Education Patient was provided with the [facility] bag with supplies needed for preoperative preparation for surgery and educated per instructions on sheet. Patient was instructed to begin preparation on 09/06/2024. The following was provided to the patient: Patient Instruction Sheet HELP Card Chlorhexidine soap Preventing Adverse Events During Surgery Pamphlet Help Prevent Skin Infections After Surgery Patient Education Included: Boost Breeze: Patient should drink at 10:00 pm the evening before surgery and 23hours before arrival time to the hospital on the day of their surgery. Patient has been instructed not to eat or drink anything other than Boost Breeze after midnight thenight before surgery. Antibacterial soap or wipes: Provided and instructed to use evening prior and morning of surgery. Then leave the soap on skin for 2 minutes and to not apply any lotions, creams, powders or deodorant after showering. Reviewed deep breathing and coughing exercises. Smoking cessation education not applicable. . Preop testing reviewed with patient by provider (see screening labs and procedures ordered prior tosurgery). Ambulation requirements prior to surgery: Encouraged to walk at least twice a day for at least 10 minutes. Postoperative activity restrictions: No lifting, pushing or pulling greater than 10 pounds for minimum of 6 weeks post-op. Discharge Needs Assessment:Not applicable. Patient has been or will be instructed by the preadmission testing nurse on which medications should be held prior to surgery. [facility] written instructions were provided to patient along with contact information for nurse and clinic. Patient encouraged to contact nurse with any questions or concerns. Patient verbalized understanding. * Aslhee Cason LPN - 09/06/2024 8:45 AM EST Patient identified by name and date of . Chief Complaint Patient presents with Follow Up Hernia repair in 2021 and is having some problems , tenderness after a days work, when works out can "feel and play with it" documented in this encounter Plan of Treatment Upcoming Encounters Date Type Department Care Team (Late st Contact Info) Description 10/23/2024 9:15 AM EST Scheduled Telephone General Surgery, [facility] [address] [place] [address] Nurse [facility] [address] [place] [address] 12/04/2024 8:00 AM EST Telemedicine Psychiatry, Zenaida Biggs [address] [facility] [place] [address] Taty Kaplan MD [address] [place] [address] Scheduled Procedures Name Priority Associated Diagnoses Date/Ti me HERNIA REPAIR RECURRENT < 3 CM REDUCIBLE Incisional hernia, without obstruction or gangrene 10/20/2024 10:33 AM EST Health Maintenance Due Date Last Done Comments [...] Not on filedocumented as of this encounter Visit Diagnoses Diagnosis Incisional hernia, without obstruction or gangrene- Primary Incisional hernia without mention of obstruction or gangrene documented in this encounter Advance Directives * Full Code [...] Power of Attor juan? No Care Teams Salt Lifter Relationship Specialty Start Date End Date Breonna Lyons DO [address] [place] [address] PCP - General Family Medicine 12/19/18 documented as of this encounter
--- OUTSIDE RECORDS SUMMARY | 2024-10-21 03:24 | External Medical Summary | Summary of Care ---
Author Name Unknown Organization [facility] Address [address] [place] [address] Phone [phone] Care Team Providers Care Psych Np Name Role Phone Breonna Lyons Primary Care Provider Reason for Visit * Reason Onset Date Comments FYI 10/02/2024 Advice 10/02/2024 Encounter Details Date Type Department Care Team (Late st Contact Info) Description 10/02/2024 Telephone General Surgery, [facility] [address] [place] [address] Services, Scheduling [address] [place] [address] FYI; Advice Allergies No known active allergiesdocumented as of this encounter (statuses as of 10/02/2024) Medications Mometasone Furo-Formoterol Fum (DULERA) 200-5 MCG/ACT [...] 1 mL 6 09/25/2024 11:03 AM EST 09/11/20 24 Active documented as of this encounter (statuses as of 10/02/2024) Active Problems Problem Noted Date Diagnosed Date Incisional hernia, without obstruction or gangre ne 09/06/2024 Autistic disorder 11/11/2023 Hemoptysis 10/28/2023 Gastro-esophageal reflux disease without esophag itis 07/29/2021 Severe persistent asthma, uncomplicated 07/29/20 21 Medical marijuana use 10/31/2020 Schizoaffective disorder 01/19/2019 Schizoid personality disorder 01/19/2019 Bipolar disorder 01/19/2019 Asthma, moderate persistent 12/19/2018 documented as of this encounter (statuses as of 10/02/2024) Resolved Problems Problem Noted Date Diagnosed Date Resolved Date Other pulmonary embolism wit hout acute cor pulmonale 01/19/2019 01/19/2019 Moderate malnutrition 10/26/20182018 ARDS (adult respiratory distress syndrome) 10/19/2018 01/19/2019 Asthma, mild persistent 10/16/201812/02 Pneumothorax, right 10/16/2018 01/20/20 19 Aspiration pneumonia 10/16/2018 019 documented as of this encounter (statuses as of 10/02/2024) Immunizations Name Administration Dates Next Due PPD [...] Author No 10/16/2018 9:57 AM Angelo Coleman, MATT * Are you blind or do you have serious difficulty seeing, even when wearing glasses? Answer Date of Assessment Author Yes 10/16/2018 9:57 AM Angelo Coleman, RN * Do you have serious difficulty walking or climbing stairs? (5 years old or older) Answer Date of Assessment Author No 10/16/2018 9:57 AM Angelo Coleman, RN * Do you have difficulty dressing [...] Angelo Coleman RN documented in this encounter Miscellaneous Notes * Telephone Encounter - Chelsy Ren OSA - 10/02/2024 8:20 AM EST Dori called pre anesthesia called - they are unable to reach pt regarding his surgery with Dr Gil - they have called 6 times and his voicemail is full. documented in this encounter Plan of Treatment Upcoming Encounters Date Type Department Care Team (Latest Contact Info) Description 10/06/2024 8:50 AM EST Hospital Encounter OR [facility], Operating Room [facility] [address] [place] [phone] Marvin Gil MD [address] [place] [address] 10/06/2024 8:50 AM EST - 10/06/2024 10:05 AM EST Surgery OR [facility], Operating Room [facility] [address] [place] [phone] Marvin Gil MD [address] [place] [address] HERNIA REPAIR RECURRENT < 3 CM REDUCIBLE 10/09/2024 9:00 AM EST Scheduled Telephone General Surgery, [facility] [address] [place] [address] [facility], Nurse Gen Surg [facility] [address] [place] [address] 10/19/2024 1:00 PM EST Office Visit General Surgery, [facility] [address] [place] [address] Marvin Gil MD [address] [place] [address] 12/04/2024 8:00 AM EST Telemedicine Psychiatry, [place] [address] [place] [address] Taty Kaplan MD [address] [facility] [place] [address] Scheduled Procedures Name Priority Associated Diagnoses Date/Ti me HERNIA REPAIR RECURRENT < 3 CM REDUCIBLE Incisional hernia, without obstruction or gangrene 10/06/2024 8:50 AM EST Health Maintenance Due Date Last Done Comments Hepatitis B Vaccine (1 of 3 - 19+ 3-dose series) 2008 DTap/Tdap Vaccines (1 - Tdap) 11/22/2011 11/21/2011 Pneumococcal Vaccine: Pediatrics (0 to 5 Years) and At-Risk Patients (6 to 18 Years and 19+ Years) (2 of 2 - PCV) 10/31/2021 10/31/2020 Diabetes Screening 10/31/2023 10/31/2020, 0 05/24/2019, 11/11/2018, Additional history exists COVID-19 Vaccine (3 - 2023- season) 2024 01/30/2021, 01/09/2021 Influenza Vaccine (FLU [...] Power of Attor juan? No Care Teams Psych Np Relationship Specialty Start Date End Date Breonna Lyons DO [address] [place] [address] PCP - General Family Medicine 12/19/18 documented as of this encounter
--- OUTSIDE RECORDS SUMMARY | 2024-10-21 03:24 | External Medical Summary | Summary of Care ---
Author Name Unknown Organization [facility] Address [address] [place] [facility] [place] [address] Phone [phone] Care Team Providers Care Auto Damage Estimator Name Role Phone Breonna Lyons Primary Care Provider Reason for Visit * Reason Onset Date Comments Pre Op Discussion 09/25/2024 Encounter Details Date Type Department Care Team (Late st Contact Info) Description 09/25/2024 Telephone Pre Surgery Center, [facility] [address] [facility] [place] [address] Marvin Gil [facility] [address] [facility] [place] [address] Pre Op Discussion Allergies No known active allergiesdocumented as of this encounter (statuses as of 10/05/2024) Medications Mometasone Furo-Formoterol Fum (DULERA) 200-5 MCG/ACT [...] as of this encounter (statuses as of 10/05/2024) Active Problems Problem Noted Date Diagnosed Date Incisional hernia, without obstruction or gangre ne 09/06/2024 Autistic disorder 11/11/2023 Hemoptysis 10/28/2023 Gastro-esophageal reflux disease without esophag itis 07/29/2021 Severe persistent asthma, uncomplicated 07/29/20 21 Medical marijuana use 10/31/2020 Schizoaffective disorder 01/19/2019 Schizoid personality disorder 01/19/2019 Bipolar disorder 01/19/2019 Asthma, moderate persistent 12/19/2018 documented as of this encounter (statuses as of 10/05/2024) Resolved Problems Problem Noted Date Diagnosed Date Resolved Date Other pulmonary embolism wit hout acute cor pulmonale 01/19/2019 01/19/2019 Moderate malnutrition 10/26/20182018 ARDS (adult respiratory distress syndrome) 10/19/2018 01/19/2019 Asthma, mild persistent 10/16/201812/02 Pneumothorax, right 10/16/2018 01/20/20 19 Aspiration pneumonia 10/16/2018 019 documented as of this encounter (statuses as of 10/05/2024) Immunizations Name Administration Dates Next Due PPD [...] encounter Miscellaneous Notes * Telephone Encounter - Zoila Ashley RN - 09/28/2024 9:23 AM EST Called patient for pre anesthesia evaluation for upcoming procedure VM full unable to leave messagesent My G documented in this encounter Plan of Treatment Upcoming Encounters Date Type Department Care Team (Latest Contact Info) Description 10/20/2024 10:37 AM EST Hospital Encounter OR [facility], Operating Room [facility] [address] [place] [phone] Marvin Gil MD [address] [place] [address] 10/20/2024 10:37 AM EST - 10/20/2024 12:12 PM EST Surgery OR [facility], Operating Room [facility] [address] [place] [phone] Marvin Gil MD [address] [place] [address] HERNIA REPAIR RECURRENT < 3 CM REDUCIBLE 10/23/2024 9:15 AM EST Scheduled Telephone General Surgery, [facility] [address] [facility] [place] [address] [place], Nurse Gen Surg [facility] [address] [place] [address] 11/02/2024 9:45 AM EST Office Visit General Surgery, [facility] [address] [facility] [place] [address] Marvin Gil MD [address] [place] [address] 12/04/2024 8:00 AM EST Telemedicine Psychiatry, [address] [place] [address] Taty Kaplan MD [address] [place] [address] Scheduled Procedures Name Priority Associated Diagnoses Date/Ti me HERNIA REPAIR RECURRENT < 3 CM REDUCIBLE Incisional hernia, without obstruction or gangrene 10/20/2024 10:37 AM EST Health Maintenance Due Date Last [...] 11/11/2018, Additional history exists COVID-19 Vaccine ( - 2023- season) 2024 01/30/2021, 01/09/2021 Influenza [...] Power of Attor juan? No Care Teams Auto Damage Estimator Relationship Specialty Start Date End Date Breonna Lyons DO [address] [place] [address] PCP - General Family Medicine 12/19/18 documented as of this encounter
--- OUTSIDE RECORDS SUMMARY | 2024-10-21 03:24 | External Medical Summary | Summary of Care ---
Author Name Unknown Organization [facility] Address [address] [place] [address] Phone [phone] Care Team Providers Care Screw Down Name Role Phone Breonna Lyons Primary Care Provider Reason for Visit * Reason Onset Date Comments Pre Op Discussion 10/03/2024 Encounter Details Date Type Department Care Team (Late st Contact Info) Description 10/03/2024 Telephone Pre [facility] Center, [facility] [address] [facility] [place] [address] Mravin Gil MD [address] [facility] [place] [address] Pre Op Discussion Allergies No known active [...] Encounter - Aubree Fernandez OSA - 10/03/2024 11:18 AM EST Rescheduled to 10/20/24. * Telephone Encounter - Aubree Fernandez OSA - 10/03/2024 9:55 AM EST Lm on significant other's voicemail to return our call. * Telephone Encounter - Dori Saleh RN - 10/03/2024 7:20 AM EST Patient is scheduled for Laparoscopic recurrent Paraumbilical Hernia Repair with mesh on 10/06/2024 Multiple unsuccessful attempts to contact the patient. PAT evaluation could not be completed Thank you, Dori documented in this encounter Plan of Treatment Upcoming Encounters Date Type Department Care Team (Late st Contact Info) Description 10/20/2024 Hospital Encounter OR [facility], Operating Room [facility] [address] [facility] [place] [phone] Marvin Gil MD [address] [place] [address] 10/23/2024 9:15 AM EST Scheduled Telephone General Surgery, [facility] [address] [facility] [place] [address] [place], Nurse Gen Surg [facility] [address] [facility] [place] [address] 11/02/2024 9:45 AM EST Office Visit General Surgery, [facility] [address] [facility] [place] [address] Marvin Gil MD [address] [place] [address] 12/04/2024 8:00 AM EST Telemedicine Psychiatry, [place] [address] [place] [address] Taty Kaplan MD [address] [place] [address] Scheduled Procedures Name Priority Associated Diagnoses Date/Ti me HERNIA REPAIR RECURRENT < 3 CM REDUCIBLE Incisional hernia, without obstruction or gangrene Health Maintenance Due Date Last Done Comments Hepatitis B Vaccine (1 of 3 - 19+ 3-dose series) 2008 DTap/Tdap Vaccines (1 - Tdap) 11/22/2011 11/21/2011 Pneumococcal Vaccine: Pediatrics (0 to 5 Years) and At-Risk Patients (6 to 18 Years and 19+ Years) (2 of 2 - PCV) 10/31/2021 10/31/2020 Diabetes Screening 10/31/2023 10/31/2020, 0 05/24/2019, 11/11/2018, Additional history exists COVID-19 Vaccine (3 - season) 2024 01/30/2021, 01/09/2021 Influenza Vaccine (FLU [...] Power of Attor juan? No Care Teams Screw Down Relationship Specialty Start Date End Date Breonna Lyons DO [facility] [place] [address] PCP - General Family Medicine 12/19/18 documented as of this encounter
--- OUTSIDE RECORDS SUMMARY | 2024-10-21 03:24 | External Medical Summary | Summary of Care ---
Author Name Unknown Organization [facility] Address [address] [place] [address] Phone [phone] Care Team Providers Care Plant Maintenance Supervisor Name Role Phone Breonna Lyons Primary Care Provider Reason for Visit * Reason Onset Date Comments Pre Op Discussion 09/20/2024 Encounter Details Date Type Department Care Team (Late st Contact Info) Description 09/20/2024 Telephone Pre Surgery Center, [facility] [address] [facility] [place] [address] Marvin [facility] [address] [facility] [place] [address] Pre Op Discussion Allergies No known active [...] Angelo Coleman RN documented in this encounter Plan of Treatment Upcoming Encounters Date Type Department Care Team (Latest Contact Info) Description 10/20/2024 10:37 AM EST Hospital Encounter OR [facility], Operating Room [facility] [address] [place] [phone] Marvin Gil MD [address] [place] [address] 10/20/2024 10:37 AM EST - 10/20/2024 12:12 PM EST Surgery OR [facility], Operating Room [facility] [address] [place] [phone] Marvin Gil MD [address] [place] [address] HERNIA REPAIR RECURRENT < 3 CM REDUCIBLE 10/23/2024 9:15 AM EST Scheduled Telephone General Surgery, [facility] [address] [place] [address] Juan Nurse Gen Surg [facility] [address] [place] [address] 11/02/2024 9:45 AM EST Office Visit General Surgery, [facility] [address] [place] [address] Marvin Gil MD [address] [place] [address] 12/04/2024 8:00 AM EST Telemedicine Psychiatry, Zenaida Biggs [address] [place] [address] Taty Kaplan MD [address] [place] [address] Scheduled Procedures Name Priority Associated Diagnoses [...] Additional history exists COVID-19 Vaccine ( - season) 2024 01/30/2021, 01/09/2021 Influenza Vaccine [...] Power of Attor juan? No Care Teams Plant Maintenance Supervisor Relationship Specialty Start Date End Date Breonna Lyons DO [address] [place] [address] PCP - General Family Medicine 12/19/18 documented as of this encounter
--- OUTSIDE RECORDS SUMMARY | 2024-10-21 03:24 | External Medical Summary | Summary of Care ---
Author Name Unknown Organization [facility] Address [address] [place] [address] Phone [phone] Care Team Providers Care Icu Rn Name Role Phone Breonna Lyons Primary Care Provider Reason for Visit * Reason Onset Date Comments FYI 10/02/2024 Advice 10/02/2024 Encounter Details Date Type Department Care Team (Late st Contact Info) Description 10/02/2024 Telephone General Surgery, [facility] [address] [place] [address] Services, Scheduling [address] [place] [address] FYI; Advice Allergies No known active allergiesdocumented [...] OSS, Operating Room OSS [address] [place] [phone] Marvin Gil MD [address] [place] [address] 10/06/2024 8:50 AM EST - 10/06/2024 10:05 AM EST Surgery OR [facility], Operating Room [facility] [address] [place] [address] Marvin Gil MD [address] [place] [address] HERNIA REPAIR RECURRENT < 3 CM REDUCIBLE 10/09/2024 9:00 AM EST Scheduled Telephone General Surgery, [facility] [address] [place] [address] [facility], Nurse Gen Surg [facility] [address] [place] [address] 10/19/2024 1:00 PM EST Office Visit General Surgery, [facility] [address] [place] [address] Marvin Gil MD [address] [place] [address] 12/04/2024 8:00 AM EST Telemedicine Psychiatry, [place] [address] [place] [address] Taty Kaplan MD [address] [place] [facility] [place] [address] Scheduled Procedures Name Priority Associated Diagnoses [...] Power of Attor juan? No Care Teams Icu Rn Relationship Specialty Start Date End Date Breonna Lyons DO [address] [place] [address] PCP - General Family Medicine 12/19/18 documented as of this encounter
[2024-10-21 03:42] LABS: Albumin Level 4.7 gm/dl (3.4-5.0); BUN Creatinine Ratio 15.6 (10-20); Bilirubin,Total 0.6 mg/dl (0.2-1.0); Calcium 9.4 mg/dl (8.6-10.3); Creatinine Clr Calc Pharmacy 148.6 ml/min; Globulin 2.3 gm/dl (2.5-4.0); Potassium 4.1 mmol/L (3.5-5.1)
[2024-10-21 04:09] LABS: Basophils # (auto) 0.03 K/uL (0.00-0.20); Basophils % (auto) 0.1 %; Immature Granulocytes % (auto) 0.4 %; Lymphocytes # (auto) 1.27 K/uL (1.20-3.40); Lymphocytes % (auto) 5.2 %; Monocytes # (auto) 2.21 K/uL (0.11-0.59); Monocytes % (auto) 9.1 %; Neutrophils # (auto) 20.79 K/uL (1.40-6.50); Neutrophils % (auto) 85.2 %; RBC Morphology Unremarkable
[2024-10-21 04:31] LABS: Appearance Urine Clear (Clear); Bilirubin Urine Negative (Negative); Blood Urine Negative (Negative); Color Urine Yellow; Glucose Urine UA Negative (Negative); Ketones Urine Negative (Negative); Leukocyte Esterase Urine Negative (Negative); Nitrite Urine Negative (Negative); Protein Urine Negative (Negative); Urobilinogen Urine Negative (Negative)
--- NOTE | 2024-10-21 05:25 | CT Scan Report ---
EXAM: CT abd pelvis IV con only CLINICAL HISTORY: Patient reports laproscopic hernia repair at 0900 this morning and reports attempting to have a BM but was unable to go. Reports spasming in lower abdominal muscles and fluctuating pain. 5/325 oxycodone/ acetaminophen @ 2100 pt unable to raise arms above head 93 ml opti 320 PW TECHNIQUE: Contiguous axial images were obtained from the level of the diaphragm to the pubic symphysis without and with intravenous contrast. Coronal and sagittal reconstructions were likewise performed and indicated to increase the sensitivity for detecting clinically relevant pathology. If IV contrast material had not been administered, the likelihood of detecting abnormalities relevant to the patient's condition would have been substantially decreased. CT scan was performed according to ALARA (as low as reasonable achievable). COMPARISON: None. FINDINGS: The visualized lung bases are clear. The liver is normal in size and attenuation. No focal liver lesions are seen. There is no intra or extrahepatic biliary ductal dilatation. Hepatic vasculature is patent. The gallbladder is present. The spleen, pancreas, and adrenal glands are unremarkable. The kidneys are normal in size and attenuation. There is no hydronephrosis or perinephric fat stranding. No renal calculi or renal masses are identified. The ureters are normal in caliber and no ureteral calculi are seen. The bladder is normal in contour. Pelvic viscera are unremarkable. No focal or diffuse bowel wall thickening or evidence of bowel obstruction is identified. Abdominal and pelvic vasculature is patent. No aggressive appearing osseous lesions are identified. Ill-defined fat stranding with multiple air foci are noted involving left side of anterior abdominal wall -possibility of recent operative changes likely. Few tiny air foci are also noted involving peritoneum- postoperative changes likely. Thin strip of fluid with few tiny air foci is noted involving retroperitoneum adjacent to the abdominal aorta and inferior vena cava, and along the left psoas muscle. Mild fluid noted in right paracolic gutter and right iliac fossa and in pelvic cavity. IMPRESSION: Ill-defined fat stranding with multiple air foci are noted involving left side of anterior abdominal wall -possibility of recent operative changes likely. Few tiny air foci are also noted, involving peritoneum- postoperative changes likely. Thin strip of fluid with few tiny air foci is noted involving retroperitoneum adjacent to the abdominal aorta and inferior vena cava, and along the left psoas muscle. Mild fluid noted in right paracolic gutter, right iliac fossa and in pelvic cavity. Electronically signed by Mohit Lozano 10-21-2024 05:24 AM
[2024-10-21] MEDS ORDERED: oxyCODONE HCL IR 5 MG TAB (IMMEDIATE RELEASE) PO PRN (07:37)
[2024-10-21] MEDS ORDERED: ALBUTEROL HFA 8 GM INHALER INH PRN (07:37)
--- OUTSIDE RECORDS SUMMARY | 2024-10-21 07:49 | External Medical Summary | Summary of Care ---
Author Name Unknown Organization [facility] Address [address] [place] [address] Phone [phone] Care Team Providers Care Pensions Retirement Plan Specialist Name Role Phone JatinderjeraldBreonnaly Primary Care Provider Reason for Visit * Auth/Cert Specialty Diagnoses / Procedures Referred By Contac t Referred To Contact Diagnoses Incisional hernia, without obstruction or gangrene Incisional hernia, without obstruction or gangrene [K43.2] Procedures RPR AA HERNIA RECR < 3 CM REDUCIBLE HERNIA REPAIR RECURRENT < 3 CM REDUCIBLE Marvin Gil MD [address] [place] [address] Phone: tel: fax: [facility], Operating Room [facility] [address] [place] [address] Phone: tel: Referral ID Status Reason Start Date Expiration Date Visits Re quested Visits Authorized [id number] Encounter Details Date Type Department Care Team (Latest Contact Info) Description 10/20/2024 9:43 AM EST - 10/20/2024 1:44 PM EST Hospital Encounter [facility] [address] [place] [id number] Marvin Gil MD [address] [place] [address] Discharge Disposition: Home - Self Care Allergies No known active allergiesdocumented as of this encounter (statuses as of 10/21/2024) Medications Mometasone Furo-Formoterol Fum (DULERA) 200-5 MCG/ACT [...] 2 days 30 Tablet 06/13/20 24 Active Additional Information Patient not taking.Reported on 10/20/2024 predniSONE 10 MG Oral Tablet (Deltasone)Indicat ions:Moderate persistent asthma with exacerbation Take 5 tabs for 2 days, 4 tabs for 2 days, 3 tabs for 2 days, 2 tabs for 2 days 1 tab for 2 days 30 Tablet 06/26/20 24 Active Additional Information Patient not taking.Reported on 10/20/2024 Benralizumab 30 MG/ML Subcutaneous Solution Prefilled Syringe (MedaxioneniSOCO) Inject 30 mg under the skin every 8 weeks 1 mL 6 09/25/2024 11:03 AM EST 09/11/20 24 Active oxyCODONE-Acetamin ophen 5-325 MG Oral Tablet (Percocet) Take 1 Tablet by mouth every 6 hours as needed for Pain, Moderate. 10 Tablet 10/20/19 25 Active documented as of this encounter (statuses as of 10/21/2024) Active Problems Problem Noted Date Diagnosed Date Incisional hernia, without obstruction or gangre ne 09/06/2024 Autistic disorder 11/11/2023 Hemoptysis 10/28/2023 Gastro-esophageal reflux disease without esophag itis 07/29/2021 Severe persistent asthma, uncomplicated 07/29/20 21 Medical marijuana use 10/31/2020 Schizoaffective disorder 01/19/2019 Schizoid personality disorder 01/19/2019 Bipolar disorder 01/19/2019 Asthma, moderate persistent 12/19/2018 documented as of this encounter (statuses as of 10/21/2024) Resolved Problems Problem Noted Date Diagnosed Date Resolved Date Other pulmonary embolism wit hout acute cor pulmonale 01/19/2019 01/19/2019 Moderate malnutrition 10/26/20182018 ARDS (adult respiratory distress syndrome) 10/19/2018 01/19/2019 Asthma, mild persistent 10/16/201812/02 Pneumothorax, right 10/16/2018 01/20/20 19 Aspiration pneumonia 10/16/2018 019 documented as of this encounter (statuses as of 10/21/2024) Immunizations Name Administration Dates Next Due PPD [...] Sign Reading Time Taken Comments Blood Pressure 122/80 10/20/2024 1:20 PM EST Pulse 82 10/20/2024 1:20 PM EST Temperature 36.1 C (97 F) 10/20/2024 12:50 PM EST Respiratory Rate 18 10/20/2024 1:20 PM EST Oxygen Saturation 98% 10/20/2024 1:20 PM EST Inhaled Oxygen Concentration - - Weight 89.8 kg (198 lb) 10/20/2024 10:02 AM EST Height 175.3 cm (5' 9") 10/20/2024 10:02 AM EST Body Mass Index 29.24 10/20/2024 10:02 AM EST documented in this encounter Functional Status [...] of Assessment Author No 10/16/2018 9:57 AM EST Angelo Hernadez RN documented as of this encounter Mental Status * Because of a physical, mental, or emotional condition, do you have serious difficulty concentrating, remembering, or making decisions? (5 years old or older) Answer Entry Date Author No 10/16/2018 9:57 AM EST Angelo Hernadez RN documented in this encounter Discharge Instructions * Discharge Instr - AVS* Marvin Gil MD - 10/20/2024 10:43 AM EST Discharge Date: 10/20/2024 The information below provides you with the instructions and the list of medications you need to betaking following discharge from the hospital. If you have any questions, please ask before leaving.Please carry this letter with you when you see your doctor in the clinic. If you have questions, you can reach us at the numbers above. Post Anesthesia Instructions: 1. Do not drive today. 2. Resume driving when surgeon permits, in 3 day(s) as long as not taking narcotics. 3. Do not make important decisions or sign legal documents today. 4. Call surgeon for: Temperature evaluation greater than 101.5 degrees Uncontrollable pain Excessive Bleeding Persistent Nausea and vomiting Medication intolerance (nausea, vomiting, or rash) 5. For nausea and vomiting use only clear liquids such as: tea, soda, bouillon until nausea subsides, then gradually increase diet as tolerated. Don't take narcotics on empty stomach, this can cause worsening of your nausea. 6. If you have any concerns or questions, call your surgeon's office, . If the physician is unavailable and it is an emergency, call [phone] or go to the nearest emergency room. Instructions for: Inguinal Hernia, Laparoscopic Hernia or Cholecystectomy, Umbilical or Ventral Hernia INCISION CARE: If present, remove any outer dressing(s) in 36 hours. The incision(s) may be sealed with sutures/poly, a skin adhesive (Dermabond), or covered with white adhesive tapes known as steri-strips. Either way there is no need to cover up the incisions again with gauze unless desired or there is drainage. TO PREVENT SWELLING: Swelling and bruising around incisions is common. If groin surgery was performed, the swelling and bruising can involve the scrotum and penis/labial area. Do not be alarmed. It will resolve on its own with time. Apply an ice pack to the incision (20 min on, 20 min off) for the first 24-48 hours to help with pain and swelling. Keep abdominal binder and gauze kerlix in place as much as possible. SHOWER: You may shower 36 hours after surgery and get the incision(s) or steri-strips wet with soapy water and gently pat them dry. If the steri-strips come off in the shower, do not become concerned. If they are still in place 10 days after surgery, you may remove them. PAIN MEDICATION: You will usually be given a prescription for a narcotic pain medication (usually Vicodin or Percocet). Options for non-constipating pain medications include products that include ibuprofen or Tylenol. Avoid taking narcotic pain medication on an empty stomach as this makes more prone to nausea and vomiting, which is a side effect of these medications. BOWEL MEDICATION: To combat constipation, you may take over the counter laxatives, fiber therapy, or prune juice. Drink plenty of fluids. COMMON COMPLAINTS: Shoulder pain and gas pains from the carbon dioxide used during the procedure is common with laparoscopic preocedures. Your body absorbs this gas naturally over a 48-72 hour period. Tylenol (Acetaminophen) or Ibuprofen (Motrin) is usually sufficient to relieve this discomfort. If you have had a laparoscopic ventral hernia repair there will be a roll of gauze which should remain over your hernia site anchored with the abdominal binder. Try to keep this in place as much as possible before your first post-op clinic visit; you may take it off temporarily for baths or showers. URINATION: If you cannot urinate, sit in a warm bath then try again. Activity : Rest today. Do not do any heavy lifting (more than 20lbs pounds) or any vigorous exercise for 4 week(s). Return to School or Work: May return to work/school as tolerated on light duty; 4 week(s) to returnwithout restrictions. Diet: Resume previous diet Follow-up Visit with: When: in 2 weeks Discharged To: Home documented in this encounter Progress Notes * Marvin Gil MD - 10/20/2024 12:08 PM EST [facility] [place] [address] [place] [address] OUTPATIENT SURGERY DISCHARGE SUMMARY NOTE Name: Kamran Neely Location: OR [facility]/OR Date: 10/20/2024 Time: 12:08 PM Surgery Date: 10/20/2024 Procedure: HERNIA REPAIR RECURRENT < 3 CM REDUCIBLE No laterality found for procedure #1 Surgeon: Marvin Gil MD Discharge Diagnosis: ventral hernia After examination of this patient, I have determined he is ready for discharge to home when the patient meets criteria. Discharge instructions were given to the patient. documented in this encounter H&P Notes * Marvin Gil MD - 10/20/2024 10:35 AM EST [facility] [address] [place] [address] [facility] HPI.: Kamran Neely is a 34 [...] Laterality Date COLONOSCOPY, DIAGNOSTIC (RECTUM) 12/06/2020 normal / [facility] CV ECHO, MIGUEL INTRAOPERATIVE 10/18/2018 ECHOCARDIOGRAPHY, TRANSESOPHAGEAL; INCLUDING PROBE PLACEMENT, IMAGE ACQUISITION, INTERPRETATION ANDREPORT performed by Noel Meneses MD at [facility] EGD, FLEXIBLE, DIAGNOSTIC 12/06/2020 normal bx / [facility] LAPAROSCOPY; CHOLECYSTECTOMY N/A 02/18/2021 LAPAROSCOPIC CHOLECYSTECTOMY performed by Marvin Gil MD at OR [facility] REPAIR INITIAL INCISIONAL OR VENTRAL HERNIA; REDUCIBLE 06/26/2022 REPAIR INITIAL INCISIONAL /VENTRAL HERNIA REDUCIBLE performed by Marvin Gil MD at OR [facility] Medications: Current Outpatient Medications Medication Sig Dispense [...] BY MOUTH EVERY 6 HOURS NEEDED FOR [id number] Tablet 3 Omeprazole 20 MG Oral Capsule [...] Stability Do you currently live in a fpc or have no steady place to sleep [...] Lap ventral/incisional hernia repair with mesh at [facility] on 10/20/2024. Marvin Gil MD 10/20/2024 10:35 AM documented in this encounter Nursing Notes * Meagan King RN - 10/20/2024 1:41 PM EST Patient is alert, pain level mild #3/10 and tolerating po fluids prior to discharge. Abdominal binder and ice intact. Patient has been visited by Dr. Gil. Patient has received and demonstrates understanding of discharge instructions. Patient is transported via w/c to private auto accompanied by and staff. * Bethany Rios RN - 10/20/2024 1:05 PM EST Patient tolerating clear liquids. Reports pain is tolerable, 3/10 to abdomen. 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 * Bethany Rios RN - 10/20/2024 12:50 PM EST Patient admitted to PACU 2 via stretcher, report received. Patient awake and alert, tolerating pain3/10 to abdomen. Abdominal binder in place with ice pack. * Corine Chamberlain RN - 10/20/2024 12:45 PM EST Pt meets d'c criteria. Pt rates pain 3/10. Pt moved to PACU 2 * Corine Chamberlain RN - 10/20/2024 12:40 PM EST Pt sitting up taking po ice chips and cassy well. VSS. Pt given fentanyl for discomfort at surgical site. Pt rates pain 5-6/10. * Corine Chamberlain RN - 10/20/2024 12:25 PM EST Pt med with fentanyl for pain control. Dr Gil here to see pt. * Corine Chamberlain RN - 10/20/2024 11:54 AM EST Patient received to pacu 1 status post hernia repair with mesh. Patient sleeping. no pain. no nausea. Respirations are even and unlabored on 6l/min mask. NSR on monitor. Abdomen soft and non distended. Abd binder in place, incision is clean, dry and intact, ice pack applied. Vital signs stable. * Bethany Rios RN - 10/20/2024 9:49 AM EST Surgical consent verified with patient. Patient agrees with listed procedure and verified signature. documented in this encounter OR Notes * OR Surgeon - Marvin Gil MD - 10/20/2024 10:38 AM EST Operative note Date of procedure: 10/20/2024 Pre-op diagnosis: Ventral hernia, periumbilical; recurrent and reducible; 2 cm Post-op diagnosis: Same Procedure: Laparoscopic ventral hernia repair with 12 cm dual circular mesh Surgeon: Marvin Gil MD Sanitation Laborer: none Anesthesia: GETA w/marcaine EBL: 10 cc Drains: none Complications: none Specimens: none Findings: periumbilical hernia Indication for procedure: This patient presents with a symptomatic ventral hernia and they desire repair. They understand the risks of recurrence, chronic pain,bleeding, bowel injury and wound problems including infection and dehisence. Consent has been signed. The patient received 2 gm of ancef preoperatively. After induction of general endotracheal anesthesia and placement og tube, their abdomen was prepped and draped under sterile conditions. A transverse left subcostal incision was made and a veress needle was then placed into the peritoneal cavity while applying upward traction on the abdominal wall with towel clamps. Once the needle was confirmed to be in the proper space insufflation was begun to achieve an intraabdominal pressure of 10-12mmHg.The veress needle was removed and a optically viewed blunt trocar and port was inserted directly viewing the layers of the abdominal wall and applying gentle upward traction with the towel clamps into the peritoneal cavity. A good diagnostic laparoscopic view was performed and the periumbilical ventral hernia was noted. A trocar was placed in the patient's LLQ under direct visualization. Laparoscopic endoshears and blunt dissection was used to reduce the hernia contents. Once the hernia was comp letely exposed on the anterior abdominal wall the mesh was obtained. This was measured on the abdominal wall and sutures were placed in the four cardinal directions of the mesh. The mesh was then placed intra-abdominally . A endocatch was used to grasp the sutures and were then used to orient the mesh intrabdominally. A laparoscopic endotacker was used to fix the mesh to the anterior abdominal wall. The mesh lay flat and covered the defect with good overlap. The ports were then removed and the pneumoperitoneum was decompressed. Vicryl sutures were then used to close the fascia, SQ, and skin. Dermabond was placed to reinforce the closures. Sterile dressings were applied. A kerlix was placed over the hernia sac and covered with an abdominal binder. The patient was awakened from anesthesia and taken to recovery in stable condition. Marvin Gil MD 10/20/2024 11:52 AM documented in this encounter Plan of Treatment Upcoming Encounters Date Type Department Care Team (Late st Contact Info) Description 10/23/2024 9:15 AM EST Scheduled Telephone General Surgery, [facility] [address] [place] [address] Nurse Juan Gen Surg [facility] [address] [facility] [place] [address] 12/04/2024 8:00 AM EST Telemedicine Psychiatry, [place] [address] [place] [phone] Taty Kaplan MD [address] [place] [phone] Health Maintenance Due Date Last Done Comments [...] documented as of this encounter Medical Devices Implanted Type Area Statistics Intern Device Identifier Shelf Expiration Date Model / Serial / Lot Mesh Symbotex 12cm Sarah Beth - [id number] Implanted:Qty: 1 on 10/20/2024 by Marvin Gil MD at OR [facility] Abdomen COVIDIEN : US SURGICAL 03/03/2028 [id number] / / [id number] documented as of this encounter Administered Medications Inactive Administered Medications - up to 3 most recent administrations Medication Order MAR Action Action Date Dose Rate Site Acetaminophen (Tylenol) tab 975 mg 975 mg, Oral, ONCE, On Wed10/20/24 at 1030, For 1 dose, Maximum of 4 grams (4000 mg) per day., Pre-Op Given 10/20/2024 10:07 AM EST 975 mg albuterol-ipratropium (Duoneb) inhalation solution 3 mL 3 mL, Nebulizer, RESPQID, First dose on Wed10/20/24 at 1030, Until Discontinued, 3 mL = 0.5 mg ipratropium/ 2.5 mg albuterol, Pre-Op Given 10/20/2024 10:27 AM EST 3 mL ceFAZolin in dextrose (Ancef) ivpb 2 g 2 g, IV Piggyback, PREOP, 1 dose, First dose on Wed10/20/24 at 1115, Administer 60 minutes prior to skin incision, Pre-Op New Bag 10/20/2024 10:53 AM EST 2 g 100 mL/hr chlorhexidine gluconate cloth 2 % pad 1 Pad 1 Pad, External, PREOP, First dose on Wed10/20/24 at 1115, Last dose on Wed10/20/24 at 1115, For 1 dose, Cleanse surgical site area immediately before transferring intra-op, Pre-Op Given 10/20/2024 10:40 AM EST 1 Pad dexAMETHasone Sodium Phosphate (Decadron) 4 MG/ML inj 4 mg 4 mg, IV Push, PRN Nausea, Starting on Wed10/20/24 at 1156, Until Wed10/20/24 at 1744, For 1 dose, PROTECT FROM LIGHT, PACU fentaNYL (PF) inj 25 mcg 25 mcg, IV Push, PRN Pain, Severe, Starting on Wed10/20/24 at 1156, Until Wed10/20/24 at 1744, For 6 doses, When given IV Push its recommended that the dose be given over 3 to 5 minutes., PACU Given 10/20/2024 12:37 PM EST 25 mcg Given 10/20/2024 12:24 PM EST 25 mcg Given 10/20/2024 12:18 PM EST 25 mcg Isolyte-S pH 7.4 infusion Intravenous, at 25 mL/hr, All Patients EXCEPT Dialysis patients Plasma-LYTE 148, isolyte-S, and isolyte-S pH 7.4 are considered equivalent - including for MAR barcode scanning., CONTINUOUS, Starting on Wed10/20/24 at 1030, Until Wed10/20/24 at 1744, Pre-Op Continue from Pre-Op 10/20/2024 10:50 AM EST 25 mL/hr New Bag 10/20/2024 10:06 AM EST 25 mL/hr 25 mL/hr ondansetron (Zofran) inj 4 mg 4 mg, IV Push, PRN Nausea, Starting on Wed10/20/24 at 1156, Until Wed10/20/24 at 1744, For 1 dose, PACU Povidone-Iodine nasal swab 4 Swab 4 Swab, Nasal, PREOP, First dose on Wed10/20/24 at 1115, Last dose on Wed10/20/24 at 1115, For 1 dose, Tilt the bottle slightly, dip one swab into solution and stir vigorously for 10 seconds. Withdraw the swab slowly to avoid wiping solution off during removal. Insert swab comfortably into one nostril and rotate for 15 seconds, covering all surfaces. Then focus on the inside tip of nostril and rotate for an additional 15 seconds. Using a new swab, Repeat above steps in the other nostril (Swab 2). Repeat the application in both nostrils using a fresh swab each times (Swab 3 and 4)., Pre-Op Given 10/20/2024 10:40 AM EST 4 Swabs documented in this encounter Active and Recently Administered Medications Times are shown in EST. Scheduled Medication Order 10/18/2024 10/19/2024 10/20/2024 Acetaminophen (Tylenol) tab 975 mg (COMPLETED) 975 mg, Oral, ONCE, On Wed10/20/24 at 1030, For 1 dose, Maximum of 4 grams (4000 mg) per day., Pre-Op 1007 (Given - Provid er: Bethany Rios RN) albuterol-ipratropium (Duoneb) inhalation solution 3 mL 3 mL, Nebulizer, RESPQID, First dose on Wed10/20/24 at 1030, Until Discontinued, 3 mL = 0.5 mg ipratropium/ 2.5 mg albuterol, Pre-Op 1027 (Given - Provid er: Bethany Rios RN) ceFAZolin in dextrose (Ancef) ivpb 2 g (COMPLETED) 2 g, IV Piggyback, PREOP, 1 dose, First dose on Wed10/20/24 at 1115, Administer 60 minutes prior to skin incision, Pre-Op 1053 (New Bag - Prov ider: Bethany Rios RN)1155 (Anes Intra-Op Fluid - Provider: Tammie Elliott CRNA) chlorhexidine gluconate cloth 2 % pad 1 Pad (COMPLETED) 1 Pad, External, PREOP, First dose on Wed10/20/24 at 1115, Last dose on Wed10/20/24 at 1115, For 1 dose, Cleanse surgical site area immediately before transferring intra-op, Pre-Op 1040 (Given - Provid er: Bethany Rios RN) Povidone-Iodine nasal swab 4 Swab (COMPLETED) 4 Swab, Nasal, PREOP, First dose on Wed10/20/24 at 1115, Last dose on Wed10/20/24 at 1115, For 1 dose, Tilt the bottle slightly, dip one swab into solution and stir vigorously for 10 seconds. Withdraw the swab slowly to avoid wiping solution off during removal. Insert swab comfortably into one nostril and rotate for 15 seconds, covering all surfaces. Then focus on the inside tip of nostril and rotate for an additional 15 seconds. Using a new swab, Repeat above steps in the other nostril (Swab 2). Repeat the application in both nostrils using a fresh swab each times (Swab 3 and 4)., Pre-Op 1040 (Given - Provid er: Bethany Rios RN) Continuous Medication Order 10/18/2024 10/19/2024 10/20/2024 Isolyte-S pH 7.4 infusion Intravenous, at 25 mL/hr, All Patients EXCEPT Dialysis patients Plasma-LYTE 148, isolyte-S, and isolyte-S pH 7.4 are considered equivalent - including for MAR barcode scanning., CONTINUOUS, Starting on Wed10/20/24 at 1030, Until Wed10/20/24 at 1744, Pre-Op 1006 (New Bag - Prov ider: Bethany Rios RN)1050 (Continue from Pre-Op - Provider: SARY Medina)1155 (Anes Intra-Op Fluid - Provider: Tammie Elliott CRNA) PRN Medication Order 10/18/2024 10/19/2024 10/20/2024 BUPivacaine-EPINEPHrine (Sensorcaine W/ Epi) 0.5%-1:001932 inj (CANCELED) ONCE PRN INTRA PROCEDURE, Starting on Wed10/20/24 at 1117, Until Wed10/20/24 at 1138, Intra-Op 1117 (Given - Provid er: Marvin Gil MD - Comment: port sites x4) dexAMETHasone Sodium Phosphate (Decadron) 4 MG/ML inj 4 mg 4 mg, IV Push, PRN Nausea, Starting on Wed10/20/24 at 1156, Until Wed10/20/24 at 1744, For 1 dose, PROTECT FROM LIGHT, PACU fentaNYL (PF) inj 25 mcg 25 mcg, IV Push, PRN Pain, Severe, Starting on Wed10/20/24 at 1156, Until Wed10/20/24 at 1744, For 6 doses, When given IV Push its recommended that the dose be given over 3 to 5 minutes., PACU 1218 (Given - Provid er: Corine Chamberlain RN)1224 (Given - Provider: Corine Chamberlain RN)1237 (Given - Provider: Corine Chamberlain RN) ondansetron (Zofran) inj 4 mg 4 mg, IV Push, PRN Nausea, Starting on Wed10/20/24 at 1156, Until Wed10/20/24 at 1744, For 1 dose, PACU documented in this encounter Advance Directives * Full Code (Latest Code Status on File) Date Activated Date Inactivated Comments 10/20/2024 12:08 PM 10/20/2024 5:44 PM This order reflects the patients wishes and were consensually agreed upon. Question Answer Comments Discussion of Advance Directives occurred with: Patient * Full Code Date Activated Date Inactivated Comments 10/20/2024 10:37 AM 10/20/2024 12:08 PM This order reflects the patients wishes and were consensually agreed upon. Question Answer Comments Discussion of Advance Directives occurred with: Patient * Full Code Date Activated Date Inactivated Comments 06/26/2022 12:33 [...] patients wishes and were consensually agreed upon. Care Teams Pensions Retirement Plan Specialist Relationship Specialty Start Date End Date Breonna Lyons DO [address] [place] [address] PCP - General Family Medicine 12/19/18 documented as of this encounter
--- NOTE | 2024-10-21 08:31 | History & Physical Report ---
Date of Service October 21, 2024 Assessment & Plan (1) Abdominal pain, acute: Plan: Patient with c/o abdominal pain. Patient states that he had a Laparoscopic umbilical hernia repair with Dr Gil at a [facility] facility on 10/20/24. He underwent an abd/pelvic CT upon arrival to the ER and it showed post operative changes. No concerns for recurrent herniation/hematoma/abscess. On exam patient is in no acute distress, wearing abd binder, port sites with dermabond, LLQ port site with ecchymosis and bloody drainage noted on gauze. Will continue to monitor this. VSS afebrile. WBC are elevated at 24, will repeat CBC in AM and hold off on ABX at this time. Miralax ordered to assist with bowel function. Protonix for GERD clear diet TELLO oral and IV analgesics for post surgical pain OOB ambulate in halls Will observe over night Pt seen and examined with Dr. Rangel (2) S/P hernia surgery: (3) GERD (gastroesophageal reflux disease): (4) Leukocytosis: Admission and Anticipated Discharge Date Admission Date: October 21, 2024 History of Present Illness Chief Complaint: abdominal pain Primary Care Provider: Breonna Lyons DO Patient is a pleasant 34 yo male with PMH of dyspnea, asthma GERD, that presented to the [facility] ER last night with c/o abdominal pain. Patient states that he had a Laparoscopic umbilical hernia repair with Dr Gil at a [facility] facility on 10/20/24 and was sitting on the toilet last night trying to have a bowel movement and spiked a fever, felt nauseated, broke out in sweats and felt worsening abdominal pain, and noticed that his left lower abdominal post operative port site had some bloody drainage. He underwent an abd/pelvic CT upon arrival to the ER and it showed post operative changes. No concerns for recurrent herniation/hematoma/abscess. Allergies Allergy/AdvReac Type Severity Reaction Status Date / Time No Known Drug Allergies Allergy Unknown Verified 02/02/24 10:20 Home Medications Medication Instructions Recorded Confirmed Type peak flow meter (Peak Air Peak #1 ea 08/23/20 12/31/23 Rx Flow Meter) omeprazole 20 mg tablet,delayed 20 mg PO QPM 12/03/20 02/02/24 History release nebulizers #1 ea 08/11/21 12/31/23 Rx nebulizer accessories #1 ea 01/04/24 01/04/24 Rx albuterol sulfate 0.63 mg/3 mL 0.63 mg (3 mL) inhalation QID PRN 04/22/24 Rx solution for nebulization shortness of breath or wheezing #90 mL tiotropium bromide 1.25 2 puff inhalation DAILY #4 grams 04/22/24 Rx mcg/actuation mist for inhalation (Spiriva Respimat) nebulizer and compressor #1 ea 04/24/24 Rx mometasone-formoterol HFA 200 2 puff inhalation BID #3 Inhalers 06/16/24 Rx mcg-5 mcg/actuation aerosol inhaler montelukast 10 mg tablet See Rx Instructions .Route 06/21/24 Rx .COMPLEX #30 tabs albuterol sulfate 90 mcg/actuation 2 inh inhalation Q6H PRN Shortness 08/07/24 Rx aerosol inhaler Of Breath #18 grams benralizumab 30 mg/mL subcutaneous 30 mg subcut .COMPLEX #1 mL 09/11/24 Rx syringe (Fasenra) Past Med/Surg History Problem List Leukocytosis (Acute) S/P hernia surgery (Acute) Abdominal pain, acute (Acute) Umbilical hernia GERD (gastroesophageal reflux disease) History of lung abscess H/O aspiration pneumonitis Dyspnea 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 Asthma inhalers daily/prn, nebulizer prn Medical History Anxiety History of anesthesia reaction 2018--during tooth abcess removal aspirated and went into ards then developed a pneumothorax [facility] [place] (was in hospital roughly 42 days) History of ARDS 2019 after aspirating during abcessed tooth removal History of abscessed tooth went into sepsis Diarrhea GERD (gastroesophageal reflux disease) Temporomandibular joint disorder "clicking", no issues Medical marijuana use Migraine History of sepsis Surgical History History of tooth extraction History of wisdom tooth extraction Family History Grandmother (Maternal) Family history of diabetes mellitus Other No family history of adverse response to anesthesia Social History Smoking Status: Former smoker Tobacco Type: Cigarettes Age Started Using Tobacco: 23; Age Quit Using Tobacco: 30; packs per day: 2; Second Hand Exposure: No; Do You Dip or Chew Tobacco: No; Hx Alcohol Use: Yes Alcohol type: beer, wine and hard liquor Hx Substance Use: Yes (medical marijuana) Preferred Language: Sierra Leonean Communication Ability: Effective Insole Department Worker Required: No Beliefs That Will Affect Care: None Current Living Situation: Family and Significant Other Current Living Situation Comment: Lives with fiance and 2 kids Feels Safe at Home: Yes Assistive Devices: Contacts and Glasses Review of Systems + fever and + chills no cough and no dyspnea no chest pain + abdominal pain, + nausea and + constipation; no vomiting no dysuria no muscle weakness no confusion Physical Exam Constitutional: cooperative; no acute distress Respiratory: normal respiratory effort; no respiratory distress Cardiovascular: Rate/Rhythm: regular rate Gastrointestinal (Abdomen): Inspection/Auscultation: + abdominal surgical incision (Dermabond to post operative port sites , LLQ ecchymosis and bloody drainage); abdomen not distended Percussion/Palpation: + abdomen tender and abdomen soft Psychiatric: A+Ox3, euthymic affect Results & Data Vital Signs (Past 12 Hours) Vital Signs Temp Pulse Pulse Resp BP BP Pulse Ox 10/21/24 08:00 98.4 F 86 19 132/93 98 10/21/24 06:00 86 20 136/97 96 10/21/24 04:00 87 20 138/90 95 10/21/24 02:51 10/21/24 02:00 88 18 133/84 97 10/20/24 23:46 98.2 F 95 H 18 123/88 99 O2 Del Method 10/21/24 08:00 Room Air 10/21/24 06:00 Room Air 10/21/24 04:00 Room Air 10/21/24 02:51 Room Air 10/21/24 02:00 Room Air 10/20/24 23:46 Room Air Diagnostic Findings [facility], [place] [phone] CT Scan Report Patient: ARLETHFARTUN Thakur Jr Admit Date: 10/20/24 MR#: [id number] Address[address]: [address] Acct ID:[id number] Address2: [address] Date: 1990 [facility] Zip: [place] [address] Age: 34 Location: ED Sex: M Room/Bed: Att Phy: Diagnosis: POST SURGERY PAIN,NO BOWEL MOVEMENT Mila Phy: Breonna Lyons DO Service Date: 10/21/24 Fam Phy: Interpreting Phy: Mohit Perkins MDAdmit Phy: Ordering Phy: Tawnya Syed PA-C cc: ~ EXAM: CT abd pelvis IV con only CLINICAL HISTORY: Patient reports laproscopic hernia repair at 0900 this morning and reports attempting to have a BM but was unable to go. Reports spasming in lower abdominal muscles and fluctuating pain. 5/325 oxycodone/ acetaminophen @ 2100 pt unable to raise arms above head 93 ml opti 320 PW TECHNIQUE: Contiguous axial images were obtained from the level of the diaphragm to the pubic symphysis without and with intravenous contrast. Coronal and sagittal reconstructions were likewise performed and indicated to increase the sensitivity for detecting clinically relevant pathology. If IV contrast material had not been administered, the likelihood of detecting abnormalities relevant to the patient's condition would have been substantially decreased. CT scan was performed according to ALARA (as low as reasonable achievable). COMPARISON: None. FINDINGS: The visualized lung bases are clear. The liver is normal in size and attenuation. No focal liver lesions are seen. There is no intra or extrahepatic biliary ductal dilatation. Hepatic vasculature is patent. The gallbladder is present. The spleen, pancreas, and adrenal glands are unremarkable. The kidneys are normal in size and attenuation. There is no hydronephrosis or perinephric fat stranding. No renal calculi or renal masses are identified. The ureters are normal in caliber and no ureteral calculi are seen. The bladder is normal in contour. Pelvic viscera are unremarkable. No focal or diffuse bowel wall thickening or evidence of bowel obstruction is identified. Abdominal and pelvic vasculature is patent. No aggressive appearing osseous lesions are identified. Ill-defined fat stranding with multiple air foci are noted involving left side of anterior abdominal wall -possibility of recent operative changes likely. Few tiny air foci are also noted involving peritoneum- postoperative changes likely. Thin strip of fluid with few tiny air foci is noted involving retroperitoneum adjacent to the abdominal aorta and inferior vena cava, and along the left psoas muscle. Mild fluid noted in right paracolic gutter and right iliac fossa and in pelvic cavity. IMPRESSION: Ill-defined fat stranding with multiple air foci are noted involving left side of anterior abdominal wall -possibility of recent operative changes likely. Few tiny air foci are also noted, involving peritoneum- postoperative changes likely. Thin strip of fluid with few tiny air foci is noted involving retroperitoneum adjacent to the abdominal aorta and inferior vena cava, and along the left psoas muscle. Mild fluid noted in right paracolic gutter, right iliac fossa and in pelvic cavity. Electronically signed by Mohit Perkins 10-21-2024 05:24 AM Dictated: 10/21/24 0324 Transcribed: Results CBC w Diff Results: RBC 4.77 M/uL (4.70-6.10) 10/21/24 WBC 24.40 K/ul (4.8-10.8) H 10/21/24 Hgb 13.8 g/dl (14.0-18.0) L 10/21/24 Hct 39.4 % (42.0-52.0) L 10/21/24 MCV 82.6 fL (80.0-100.0) 10/21/24 MCH 28.9 pg (25.0-34.0) 10/21/24 MCHC 35.0 g/dL (32.0-36.0) 10/21/24 RDW Standard Deviation 37.8 fL (36.4-46.3) 10/21/24 RDW Coefficient of Variation 12.5 % (11.5-14.5) 10/21/24 Plt Count 292 K/uL (130-400) 10/21/24 MPV 9.6 fL (9.4-12.4) 10/21/24 Neutrophils (%) (Auto) 85.2 % 10/21/24 Lymphocytes (%) (Auto) 5.2 % 10/21/24 Monocytes # (Auto) 2.21 K/uL (0.11-0.59) H 10/21/24 Eosinophils # (Auto) 0.00 K/uL (0.00-0.50) 10/21/24 Immature Granulocyte % (Auto) 0.4 % 10/21/24 Neutrophils # (Auto) 20.79 K/uL (1.40-6.50) H 10/21/24 Lymphocytes # (Auto) 1.27 K/uL (1.20-3.40) 10/21/24 Monocytes # (Auto) 2.21 K/uL (0.11-0.59) H 10/21/24 Eosinophils # (Auto) 0.00 K/uL (0.00-0.50) 10/21/24 Basophils # (Auto) 0.03 K/uL (0.00-0.20) 10/21/24 Immature Granulocyte # (Auto) 0.10 K/uL (0.01-0.20) 5 Red Blood Cell Morphology Unremarkable 10/21/24 Supervising Physician Co-Signing Physician Notes CT images and results were personally viewed and interpreted by myself His vitals are normal and I suspect his leukocytosis is postoperative in nature Will admit him for pain control Advancing diet CBC tomorrow this is improved and he is feeling better, he will be discharged home tomorrow Coding Level of Care Code 42559 INT INP/OBS CARE MIN Diagnoses Abdominal pain, acute R10.9 S/P hernia surgery Z98.890; Z87.19 GERD (gastroesophageal reflux disease) K21.9 Leukocytosis D72.829
[2024-10-21] MEDS: MoRPHine SULFATE 2 MG/ML CARP IV PRN (08:58)
[2024-10-21] MEDS: ONDANSETRON INJ 2 MG/ML 2 ML VIAL IV PRN (09:05)
[2024-10-21] MEDS: POLYETHYLENE (MIRALAX) 17 GM PACK PO SCH (09:57)
[2024-10-21] MEDS: FLUTICASONE/VILANTEROL 200/25MCG 14 PUFFS/INHALER INH SCH (10:00)
[2024-10-21] MEDS: UMECLIDINIUM BROMIDE 62.5MCG/BLISTER 7 PUFFS/INHALER INH SCH (10:00)
--- NOTE | 2024-10-21 10:55 | XRay Report ---
EXAM: Radiograph of the Chest 1 View INDICATION: Shortness of breath. TECHNIQUE: Frontal view of the chest. COMPARISON: No relevant prior studies available. FINDINGS: Lungs and pleural spaces: Prominent bronchovascular markings with linear atelectasis or scarring noted in the lower lobes. No confluent consolidation. No pulmonary edema, pleural effusion or pneumothorax. Heart: Shape and configuration within normal limits allowing for technique. Mediastinum: Normal contour. Bones/joints: No fracture, erosion or dislocation. Soft tissues: No abnormality noted. No radiopaque foreign body noted. Upper abdomen: No abnormality noted. IMPRESSION: Prominent bronchovascular markings may reflect bronchitis or pulmonary vascular congestion. ACT 112: Negative or not required by law. Electronically signed by Lyla Morales 10-21-2024 10:55 AM
[2024-10-21] MEDS: ACETAMINOPHEN 1,000 MG/100 ML VIAL IV PRN (12:32)
[2024-10-21 13:45] LABS: Adenovirus PCR Not Detected (NotDetected); Bordetella parapertussis PCR Not Detected (NotDetected); Bordetella pertussis PCR Not Detected (NotDetected); Chlamydia pneumoniae PCR Not Detected (NotDetected); Coronavirus 229E PCR Not Detected (NotDetected); Coronavirus CoV-2 (COVID19)PCR Not Detected (NotDetected); Coronavirus HKU1 PCR Not Detected (NotDetected); Coronavirus NL63 PCR Not Detected (NotDetected); Coronavirus OC43PCR Not Detected (NotDetected); Human Metapneumovirus PCR Not Detected (NotDetected); Influenza A PCR Not Detected (NotDetected); Influenza B PCR Not Detected (NotDetected); Mycoplasma pneumoniae PCR Not Detected (NotDetected); Parainfluenza Virus 1 PCR Not Detected (NotDetected); Parainfluenza Virus 2 PCR Not Detected (NotDetected); Parainfluenza Virus 3 PCR Not Detected (NotDetected); Parainfluenza Virus 4 PCR Not Detected (NotDetected); Respiratory Syncytial VirusPCR Not Detected (NotDetected); Rhinovirus/Enterovirus PCR Not Detected (NotDetected)
[2024-10-21] MEDS: oxyCODONE HCL IR 5 MG TAB (IMMEDIATE RELEASE) PO PRN (14:47)
[2024-10-21] MEDS: DOCUSATE SODIUM 100 MG CAP PO ONE (18:13)
[2024-10-21] MEDS: PANTOprazole 40 MG TAB PO SCH (19:41)
[2024-10-21] MEDS: IBUPROFEN 600 MG TAB PO PRN (22:00)
[2024-10-21] MEDS: SIMETHICONE 80 MG CHEW PO ONE (23:42)
[2024-10-22 07:19] VITALS: BP 135/87; PULSE 89; RESP 16; TEMP 98.8; O2SAT 97
[2024-10-22 07:47] LABS: Basophils # (auto) 0.02 K/uL (0.00-0.20); Basophils % (auto) 0.1 %; Hematocrit (blood only) 35.2 % (42.0-52.0); Hemoglobin 12.2 g/dl (14.0-18.0); Immature Granulocytes # (auto) 0.07 K/uL (0.01-0.20); Immature Granulocytes % (auto) 0.5 %; Lymphocytes # (auto) 1.19 K/uL (1.20-3.40); Lymphocytes % (auto) 7.9 %; Mean Corpuscular Hemoglobin 28.7 pg (25.0-34.0); Mean Corpuscular Hgb Conc 34.7 g/dL (32.0-36.0); Mean Corpuscular Volume 82.8 fL (80.0-100.0); Mean Platelet Volume 9.7 fL (9.4-12.4); Neutrophils # (auto) 12.27 K/uL (1.40-6.50); Neutrophils % (auto) 81.5 %; Platelet Count 241 K/uL (130-400); RDW Coefficient of Variation 12.5 % (11.5-14.5); RDW Standard Deviation 37.8 fL (36.4-46.3); Red Blood Count 4.25 M/uL (4.70-6.10); White Blood Count 15.05 K/ul (4.8-10.8)
--- NOTE | 2024-10-22 09:25 | Surgery Progress Note ---
Date of Service October 22, 2024 Assessment & Plan (1) S/P hernia surgery: Plan: He is feeling much better from a pain standpoint after passing a lot of gas He is to continue to take his MiraLAX daily as discharged His white count is much lower today, most likely postoperative Will discharge the patient home today and he can follow-up with [facility] surgery early next week Admission and Anticipated Discharge Date Admission Date: October 21, 2024 Subjective Patient seen and examined. Tolerating liquids. Passed a lot of flatus yes terday and feels better. No BM yet. Afebrile. Review of Systems Constitutional: no fever and no chills Gastrointestinal: no abdominal pain, no nausea and no vomiting Genitourinary: no dysuria or no decreased urination Integumentary: no acne and no boil Psychiatric: no behavioral changes, no depression and no anhedonia Hematologic / Lymphatic: no easy bleeding and no easy bruising Physical Exam Constitutional: WD/WN, vitals as above Eyes: PERRL, conjunctivae normal, anicteric sclerae Respiratory: normal respiratory effort, lungs clear to auscultation Cardiovascular: RRR, no murmur, no edema Gastrointestinal (Abdomen): Abdomen slightly distended, incisions without erythema, left lower quadrant incision with some ecchymosis Skin: no rashes, warm and dry Psychiatric: A+Ox3, euthymic affect Results & Data Vital Signs (Past 12 Hours) Vital Signs Temp Pulse Resp BP Pulse Ox O2 Del Method 10/22/24 07:17 37.1 C 89 16 135/87 97 Room Air PG Care Time/CCT Total # of Minutes Spent Total Time Spent with Patient: Total time spent is greater than 50% in coordination of care (as documented) at patient's floor/unit and/or counseling patient: Coding Level of Care Code 98097 SUB INP/OBS CARE 10/28MIN Diagnoses S/P hernia surgery Z98.890; Z87.19
[2024-10-22] MEDS: ACETAMINOPHEN 325 MG TAB PO PRN (09:56)
[2024-10-22] MEDS ORDERED: PANTOprazole 40 MG TAB PO SCH (11:00)
--- NOTE | 2024-10-23 12:46 | Discharge Summary ---
Date of Service October 22, 2024 Admission HPI Per Admitting Provider Patient is a pleasant 34 yo male with PMH of dyspnea, asthma GERD, that presented to the [facility] ER last night with c/o abdominal pain. Patient states that he had a Laparoscopic umbilical hernia repair with Dr Gil at a [facility] facility on 10/20/24 and was sitting on the toilet last night trying to have a bowel movement and spiked a fever, felt nauseated, broke out in sweats and felt worsening abdominal pain, and noticed that his left lower abdominal post operative port site had some bloody drainage. He underwent an abd/pelvic CT upon arrival to the ER and it showed post operative changes. No concerns for re current herniation/hematoma/abscess. Principal Diagnosis s/p hernia surgery post operative pain Discharge Exam awake/alert, no distress Respiratory normal respiratory effort Gastrointestinal (Abdomen) Inspection/Auscultation: + abdomen distended (mild) and + abdominal surgical incision (llq incision with some ecchymosis) Percussion/Palpation: abdomen soft Discharge Data Allergies Allergy/AdvReac Type Severity Reaction Status Date / Time No Known Drug Allergies Allergy Unknown Verified 02/02/24 10:20 Consultations 10/21/24 05:30 ED Decision to Admit Stat Ordered Studies 10/21/24 02:34 CT abd pelvis IV con only Stat Hospital Course (1) S/P hernia surgery: This is a 34yM who is recently s/p a laparoscopic umbilical hernia repair on 10/20/24 with [facility] surgery who presented to the [facility] ED on 10/21/24 with abdominal pain & nausea. Workup with a CT a/p revealed post operative changes. WBC 25. He had some bloody drainage from his LLQ incision that was managed with a dressing and abdominal binder. Patient was admitted for observation and on a clear liquid. On 10/22 WBC downtrended to 15 and vitals stable. Patient cassy erating clears and his diet was advanced. His pain was much improved from admission. Diet advanced then to regular without issues and patient feeling well overall. He was ordered for his PPI which patient says he needs to take each morning. He was passing gas and taking daily miralax. Patient was deemed stable for discharge to home and instructed to follow up with his surgeon within 1 weeks time. Total Time Total Time Spent Total Time Spent (In Minutes): 15 Discharge Plan Discharge Items Patient Disposition: Home - Self-Care Reason For Visit: POST OPERATIVE PAIN Discharge Diagnosis: post operative pain Condition on Discharge: Good Activity: As commented below Lifting: No more than 10 pounds Bathing Comment: no soaking in pools/baths Exercise/Sports: Wait until after follow-up appointment Driving/Machine Use: no driving if taking narcotic pain medication Non-emergency contact: Surgeon Call non-emergency contact if: you have any medication questions, your symptoms worsen, you have a fever, your temperature is above 101.5, your wound has increased redness, your wound has increased drainage and your wound pain has increased Follow-up/Referrals: Marvin Gil MD [Physician] - Breonna Lyons DO [Primary Care Provider] - Diet: Regular Addtl Attending Provider Instructions: Please call Dr Gil's office upon discharge and set up your follow up appoin tment. He may want to see you at an earlier date. Please follow all of your post operative discharge instructions that Dr Gil has given you. You may continue to take your post operative pain medication that was prescribed to you by your surgeon. In addition you may take over the counter Tylenol or Ibuprofen per bottle instructions. Pending Studies at Discharge: No Stand-Alone Forms: My [facility] [employer], Smoking Cessation Medications and DC Order Prescriptions: Continued albuterol sulfate 0.63 mg/3 mL solution for nebulization 0.63 mg inhalation QID PRN (Reason: shortness of breath or wheezing) Qty: 90 1RF Spiriva Respimat 1.25 mcg/actuation mist 2 puff INH DAILY Qty: 4 5RF (DME) nebulizer and compressor Device See Rx Instructions .Route Qty: 1 0RF Rx Instructions: As directed mometasone-formoterol 200-5 mcg/actuation HFA aerosol inhaler 2 puff inhalation BID Qty: 3 3RF montelukast 10 mg tablet See Rx Instructions .ROUTE .COMPLEX Qty: 30 5RF Dose Instruction: TAKE 1 TABLET BY MOUTH EVERY MORNING Rx Instructions: TAKE 1 TABLET BY MOUTH EVERY MORNING albuterol sulfate 90 mcg/actuation HFA aerosol inhaler 2 inh inhalation Q6H PRN (Reason: Shortness Of Breath) Qty: 18 5RF Fasenra 30 mg/mL syringe 30 mg subcut .COMPLEX Qty: 1 6RF Rx Instructions: INJECT 30MG SQ EVERY 8 WEEKS APPROVED 03/16/24 - 03/17/25 REF# [id number] (DME) nebulizer accessories Kit See Rx Instructions .Route Qty: 1 0RF Rx Instructions: As directed (DME) Peak Air Peak Flow Meter Device See Rx Instructions .ROUTE .MEDSUPPLY Qty: 1 0RF Rx Instructions: As directed (DME) nebulizers Misc See Rx Instructions .Route Qty: 1 0RF Rx Instructions: As directed omeprazole 20 mg Tablet,Delayed Release (Dr/Ec) 20 mg PO UD Rx Instructions: 20 mg po pm no fill history available Discharge Orders: Discharge Order (Routine); Ordered 10/22/24 Ordered By: Sonam Willoughby/Other Patient Handouts: Treating Constipation Admission Data Admit Date/Time: 10/21/24 07:02 Attending Provider: Kevin Rangel Admit Provider: Kevin Rangel Primary Care Provider: Breonna Lyons Other Providers: Kevin Rangel Other Interventions: Discharge Summary Assessment (RN) Last Done: 10/22/24 11:34 Coding Level of Care Code 89616 IN/OBS DISCH 30 MIN/LESS Diagnoses S/P hernia surgery Z98.890; Z87.19
== END 2024-10-22 12:20 | disposition home or self-care (01) ==
LOC: ED 23:34 → EDINP 23:34 → 3W 10-21 07:37
DX: Z79.51 Long term (current) use of inhaled steroids; L76.22 Postprocedural hemorrhage of skin and subcutaneous tissue following other procedure; J45.909 Unspecified asthma, uncomplicated; R11.0 Nausea; D72.829 Elevated white blood cell count, unspecified; Z87.891 Personal history of nicotine dependence; Z79.899 Other long term (current) drug therapy; G89.18 Other acute postprocedural pain; R50.9 Fever, unspecified; K21.9 Gastro-esophageal reflux disease without esophagitis; Z98.890 Other specified postprocedural states